=== PATIENT | female | born 1990 | race Caucasian/White ===

== ENCOUNTER 2017-03-27 15:30 | Outpatient (RCR) | payer OTHER, SELFPAY | END 2017-04-05 23:59 | LOC: NS 15:30 | PROVIDERS: Family Provider Student in an Organized Health Care Education/Training Program; PCP Student in an Organized Health Care Education/Training Program; Visit Provider Nurse Practitioner Adult Health | DX: E66.9 Obesity, unspecified (principal); Z71.3 Dietary counseling and surveillance | CPT/HCPCS: 97803 ==

== ENCOUNTER 2017-04-10 16:07 | Outpatient (RCR) | payer OTHER, SELFPAY | END 2017-05-03 23:59 | LOC: NS 16:07 | PROVIDERS: Family Provider Student in an Organized Health Care Education/Training Program; PCP Student in an Organized Health Care Education/Training Program; Visit Provider Nurse Practitioner Adult Health | DX: E66.9 Obesity, unspecified (principal); Z71.3 Dietary counseling and surveillance | CPT/HCPCS: 97803 ==

== ENCOUNTER → 2017-04-20 17:58 | Outpatient (CLI) | payer OTHER, SELFPAY ==
[2017-04-25 15:57] LABS: HPV Reflexed? NOT INDICATED
== END ==
PROVIDERS: Family Provider Student in an Organized Health Care Education/Training Program; PCP Student in an Organized Health Care Education/Training Program; Visit Provider Obstetrics & Gynecology
DX: Z12.4 Encounter for screening for malignant neoplasm of cervix (principal)
CPT/HCPCS: 88175; G0145

== ENCOUNTER 2017-05-22 16:00 | Outpatient (RCR) | payer OTHER, SELFPAY | END 2017-06-03 23:59 | LOC: NS 16:00 | PROVIDERS: Family Provider Student in an Organized Health Care Education/Training Program; PCP Student in an Organized Health Care Education/Training Program; Visit Provider Nurse Practitioner Adult Health | DX: E66.9 Obesity, unspecified (principal); Z71.3 Dietary counseling and surveillance | CPT/HCPCS: 97803 ==

== ENCOUNTER → 2017-05-23 16:20 | Outpatient (CLI) | payer OTHER, SELFPAY ==
[2017-05-23 17:50] LABS: Hemoglobin A1c 5.1 % (4.2-6.3)
== END ==
PROVIDERS: Family Provider Student in an Organized Health Care Education/Training Program; PCP Student in an Organized Health Care Education/Training Program; Visit Provider Student in an Organized Health Care Education/Training Program
DX: R63.5 Abnormal weight gain (principal)
CPT/HCPCS: 36415; 83036

== ENCOUNTER → 2017-05-24 15:48 | Outpatient (CLI) | payer OTHER, SELFPAY ==
[2017-05-24 17:45] LABS: T4 Free Direct 0.93 ng/dL (0.76-1.46)
[2017-05-24 17:51] LABS: T3 Total - Triiodothyronine 1.06 ng/mL (0.6-1.81)
== END ==
PROVIDERS: Family Provider Student in an Organized Health Care Education/Training Program; PCP Student in an Organized Health Care Education/Training Program; Visit Provider Student in an Organized Health Care Education/Training Program
DX: R63.5 Abnormal weight gain (principal)
CPT/HCPCS: 36415; 84439; 84480

== ENCOUNTER → 2017-05-30 16:33 | Outpatient (CLI) | payer OTHER, SELFPAY ==
[2017-05-30 17:54] LABS: Follicle Stimulating Hormone 7.7 mIU/mL
[2017-06-02 03:07] LABS: DHEA Sulfate 96.9 ug/dL (84.8-378.0)
[2017-06-02 14:37] LABS: 17-Hydroxyprogesterone < 10 ng/dL (.)
== END ==
PROVIDERS: Family Provider Student in an Organized Health Care Education/Training Program; PCP Student in an Organized Health Care Education/Training Program; Visit Provider Obstetrics & Gynecology
DX: N92.6 Irregular menstruation, unspecified (principal)
CPT/HCPCS: 36415; 82627; 83001; 83498; 84402; 82626

== ENCOUNTER → 2017-06-05 09:19 | Outpatient (CLI) | payer OTHER, SELFPAY ==
[2017-06-09 12:08] LABS: Testosterone, Free 0.71 ng/dL (0.10-0.85); Testosterone, Total 37 ng/dL (8-48)
[2017-06-09 17:28] LABS: Testosterone, % Free 1.91 % (0.50-2.80)
== END ==
PROVIDERS: Family Provider Student in an Organized Health Care Education/Training Program; PCP Student in an Organized Health Care Education/Training Program; Visit Provider Obstetrics & Gynecology
DX: R79.89 Other specified abnormal findings of blood chemistry (principal)
CPT/HCPCS: 36415; 84402; 84403

== ENCOUNTER 2017-06-05 17:18 | Outpatient (RCR) | payer OTHER, SELFPAY | END 2017-07-03 23:59 | LOC: NS 17:18 | PROVIDERS: Family Provider Student in an Organized Health Care Education/Training Program; PCP Student in an Organized Health Care Education/Training Program; Visit Provider Nurse Practitioner Adult Health | DX: E66.9 Obesity, unspecified (principal); Z71.3 Dietary counseling and surveillance | CPT/HCPCS: 97803 ==

== ENCOUNTER → 2017-06-24 14:36 | Outpatient (CLI) | payer OTHER, SELFPAY ==
--- NOTE | 2017-06-24 10:08 | US_ITS ---
STUDY: ULTRASOUND TRANSVAGINAL CLINICAL: Female, 27 years old. Elevated testosterone. Patient taking control pills. Chronic pelvic pain. TECHNIQUE: Transvaginal COMPARISON: None. FINDINGS: Uterus measures 6.5 x 3.7 x 3.7 cm and is retroverted. Normal endometrial thickness measuring 3 mm. There are no endometrial masses, and there is no fluid in the endometrial cavity. Normal uterine cervix. Normal right ovary, measuring 1.4 x 1.0 x 0.7 cm. There are multiple follicles without a dominant cyst. Normal left ovary, measuring 2.7 x 2.6 x 2.1 cm. Left ovarian simple cyst measuring 2.7 x 2.5 x 2.2 cm. There is no free fluid in the pelvis. Polycystic ovary disease: No. US/Pelvic (Non ) IMPRESSION: 2.7 cm simple left ovarian cyst compatible with physiologic cyst. Otherwise negative exam. Electronically Signed: Edwin Rock MD at 8:09 EDT , Service support ,
--- NOTE | 2017-06-24 10:08 | US_ITS ---
STUDY: ULTRASOUND TRANSVAGINAL CLINICAL: Female, 27 years old. Elevated testosterone. Patient taking control pills. Chronic pelvic pain. TECHNIQUE: Transvaginal COMPARISON: None. FINDINGS: Uterus measures 6.5 x 3.7 x 3.7 cm and is retroverted. Normal endometrial thickness measuring 3 mm. There are no endometrial masses, and there is no fluid in the endometrial cavity. Normal uterine cervix. Normal right ovary, measuring 1.4 x 1.0 x 0.7 cm. There are multiple follicles without a dominant cyst. Normal left ovary, measuring 2.7 x 2.6 x 2.1 cm. Left ovarian simple cyst measuring 2.7 x 2.5 x 2.2 cm. There is no free fluid in the pelvis. Polycystic ovary disease: No. US/Transvaginal Non- IMPRESSION: 2.7 cm simple left ovarian cyst compatible with physiologic cyst. Otherwise negative exam. Electronically Signed: Edwin Rock MD at 8:09 EDT , Service support ,
== END ==
PROVIDERS: Family Provider Student in an Organized Health Care Education/Training Program; PCP Student in an Organized Health Care Education/Training Program; Visit Provider Obstetrics & Gynecology
DX: R79.89 Other specified abnormal findings of blood chemistry (principal)
CPT/HCPCS: 76830; 76856; 93976

== ENCOUNTER 2017-07-12 08:04 | Outpatient (RCR) | payer OTHER, SELFPAY | END 2017-08-03 23:59 | LOC: NS 08:04 | PROVIDERS: Family Provider Student in an Organized Health Care Education/Training Program; PCP Student in an Organized Health Care Education/Training Program; Visit Provider Nurse Practitioner Adult Health | DX: E66.9 Obesity, unspecified (principal); Z71.3 Dietary counseling and surveillance ==

== ENCOUNTER 2017-12-03 11:02 | Emergency (ER) | payer OTHER, SELFPAY ==
[2017-12-03 11:03] VITALS: BP 143/89; PULSE 96; RESP 18; TEMP 36.6; O2SAT 99; BMI 45.7
--- NOTE | 2017-12-03 11:21 | CT_ITS ---
STUDY: CT ABDOMEN AND PELVIS WITH CONTRAST REASON FOR EXAM: Female, 27 years old. Abdominal pain x2 days RADIATION DOSAGE (If Supplied By Facility): CTDIvol = ( 21.28 ) mGy, DLP = ( 1749.82 ) mGycm TECHNIQUE: Transaxial images were obtained from the dome of the diaphragm to the symphysis pubis with oral contrast. 100 ml of Isovue 300 contrast was administered. Sagittal and coronal images were reconstructed. Individualized dose optimization techniques were used for this CT. COMPARISON: None. FINDINGS: The visualized lung bases are unremarkable. The visualized portions of the heart are within normal limits. Normal liver. Normal gallbladder and extrahepatic biliary system. Normal spleen. Normal pancreas. Normal bilateral adrenal glands. Normal right kidney. Normal left kidney. Normal visualized stomach. Normal small intestine. In the distal transverse colon as well as the descending colon in the region of the splenic flexure, there is circumferential wall thickening and edema of the colon compatible with colitis. The appendix is visualized and appears normal. Normal abdominal aorta. Normal inferior vena cava. Normal retroperitoneum. Normal urinary bladder. Normal visualized uterus. Normal abdominal wall. Normal osseous structures. CT/Abdomen/Pelvis WITH Contrast IMPRESSION: Distal transverse and descending colitis Electronically Signed: Aryan Harden DO at 13:29 EDT Tel , Service support ,
--- NOTE | 2017-12-03 11:25 | ED.DCSUM_ITS ---
- ER Visit Summary Date of Service: 12/03/17 Chief Complaint: Abdominal pain History of Present Illness: The patient is a 27 F who presents for severe abdominal pain since last night. Patient states she began having diffuse abdominal pain described as a dull ache with intermittent sharp stabbing pains last night. She thought she had to have a bowel movement, and had a normal stool followed by 2-3 episodes of diarrhea. She has had associated nausea but no vomiting. No fever but has had chills and sweats alternating. Today the abdominal pain is radiating into the bilateral lower quadrants, continuing the constant dull ache diffusely with sharp stabbing pains into the lower quadrants. There is not one side that hurts worse than the other. Patient today is having large amounts of flatus and feels like she has to have a bowel movement, but bloody mucus is all that comes out. Pain woke her from sleep this morning. With the severe pain she feels like she is going to pass out. She denies . She has a history of ovarian cyst but states this feels completely different. She denies any dysuria, hematuria, frequency or urgency. No medical problems other than the ovarian cysts. Patient is on oral contraceptives. Physical Examination: Vital signs: afebrile, hemodynamically stable, no hypoxia on room air General: well nourished, well developed, BMI 45, in no distress, appears uncomfortable Skin: warm, dry, no rash, no pallor HEENT: normocephalic and atraumatic; PERRL, EOMI, moist mucous membranes Cardiovascular: Tachycardic rate and rhythm without murmurs, no peripheral edema, 2+ pulses all distal extremities Respiratory: No increased work of breathing, lungs are clear to auscultation bilaterally, no rales, rhonchi or wheezing Abdominal: Abdomen is soft, diffusely tender, worst in the left and right lower quadrants and suprapubic region, with hyperactive bowel sounds, no guarding or rebound, no masses MSK: Moves all extremities, no deformities, normal strength Neuro: Awake and alert, oriented ?4. No facial droop, sensation and motor function intact and symmetric Test Results: Abnormal Lab Results 12/03/17 12/03/17 12/03/17 11:35 11:35 11:35 WBC 7.4 RBC 4.60 Hgb 13.5 Hct 40.5 MCV 88.0 MCH 29.3 MCHC 33.3 RDW 13.2 RDW Differential 42.6 Plt Count 237 MPV 10.3 Immature Gran % (Auto) 0.100 Neut % (Auto) 76.0 H Lymph % (Auto) 18.3 L [place] % (Auto) 3.9 Eos % (Auto) 1.6 Baso % (Auto) 0.1 Absolute Neuts (auto) 5.6 Absolute Lymphs (auto) 1.35 Total Counted Not Reportable Sodium 139 Potassium 3.8 Chloride 107 Carbon Dioxide 25.0 Anion Gap 7 BUN 8 Creatinine 0.73 Estim Creat Clear Calc 89.93 Est GFR (MDRD) Af Amer 121 Est GFR (MDRD) Non-Af 100 BUN/Creatinine Ratio 11.0 Glucose 94 Lactic Acid 0.8 Calcium 8.4 L Total Bilirubin 0.30 AST 13 L ALT 16 Alkaline Phosphatase 50 Total Protein 7.3 Albumin 3.2 Globulin 4.1 Albumin/Globulin Ratio 0.8 L Lipase 93 Urine Color Urine Clarity Urine pH Ur Specific [place] Urine Protein Urine Glucose (UA) Urine Ketones Urine Occult Blood Urine Nitrite Urine Bilirubin Urine Urobilinogen Ur Leukocyte Esterase Urine RBC Urine WBC Ur Squamous Epith Cells Urine Bacteria Urine Mucus Urine Test 12/03/17 12/03/17 11:35 11:35 WBC RBC Hgb Hct MCV MCH MCHC RDW RDW Differential Plt Count MPV Immature Gran % (Auto) Neut % (Auto) Lymph % (Auto) [place] % (Auto) Eos % (Auto) Baso % (Auto) Absolute Neuts (auto) Absolute Lymphs (auto) Total Counted Sodium Potassium Chloride Carbon Dioxide Anion Gap BUN Creatinine Estim Creat Clear Calc Est GFR (MDRD) Af Amer Est GFR (MDRD) Non-Af BUN/Creatinine Ratio Glucose Lactic Acid Calcium Total Bilirubin AST ALT Alkaline Phosphatase Total Protein Albumin Globulin Albumin/Globulin Ratio Lipase Urine Color Yellow Urine Clarity Sl. Cloudy Urine pH 5.0 Ur Specific [place] 1.015 Urine Protein Negative Urine Glucose (UA) Normal Urine Ketones Negative Urine Occult Blood 10 H Urine Nitrite Negative Urine Bilirubin Negative Urine Urobilinogen Normal Ur Leukocyte Esterase 500 H Urine RBC 0 SEEN Urine WBC 10-25 SEEN Ur Squamous Epith Cells 5-10 SEEN Urine Bacteria 0 SEEN Urine Mucus 0 SEEN Urine Test Negative Clinical Impression(s) from Imaging Studies Abdomen/Pelvis CT 12/03/17 11:21 IMPRESSION: Distal transverse and descending colitis Electronically Signed: Aryan Harden DO at 13:29 EDT Tel , Service support , Medications Given Discontinued Medications Sodium Chloride () 1,000 mls @ 1,000 mls/hr IV .Q1H ONE Stop: 12/03/17 12:19 Last Admin: 12/03/17 11:45 Dose: 1,000 mls/hr Morphine Sulfate () 4 mg IV X1 ONE Stop: 12/03/17 11:21 Last Admin: 12/03/17 11:45 Dose: 4 mg Ondansetron HCl (Zofran) 4 mg IV X1 ONE Stop: 12/03/17 11:21 Last Admin: 12/03/17 11:45 Dose: 4 mg Emergency Department Course and Treatment: Patient was given IV fluids, Zofran and morphine for pain. test was checked and was negative. Labs and CT abdomen and pelvis performed. She had no leukocytosis, anemia, electrolyte derangements, hepatic or renal dysfunction. CT of the abdomen and pelvis showed colitis of the distal transverse colon and the descending colon. Patient is afebrile and nontoxic-appearing. She will not be treated with antibiotics at this time for her diarrhea and colitis, as the differential includes inflammatory colitis, infectious colitis from viral or bacterial etiology; and if it is bacterial, her symptoms are mild. Thus risks of unnecessary empiric antibiotic treatment outweigh the benefits of treatment for a presumed bacterial infection. Patient's urine was positive for pyuria with gross contamination with epithelial cells, and patient had no urinary symptoms. Culture is pending but patient will not be started on antibiotics for UTI at this time. Patient was feeling better after receiving fluids and medications. Patient did not have any further diarrhea while in the emergency department, thus stool sample was not available for testing. Patient was discharged home with a prescription for Zofran and Bentyl. She is to follow-up with her doctor if she continues to have diarrhea, for consideration of possible GI consult and colonoscopy. Patient will return to the emergency department if she has worsening of her symptoms, such as development of a fever, uncontrolled pain, or general worsening of her condition. Patient discharged home in improved condition. Treatment Plan: [] Disposition: [] Impression: Acute colitis This note was generated with [employer] dictation software. It may contain incorrect words, spelling, and punctuation that were not noted in review of the chart prior to signing ED Disposition - Plan for ED Patient: Chief Complaint: Abd Pain Prescriptions: Ondansetron [Zofran Odt] 4 mg PO Q8H PRN PRN #10 tab PRN Reason: Nausea Dicyclomine HCl [Bentyl] 20 mg PO TIDAC #20 cap Referrals: Ahmet Martinez DO [Primary Care Provider] -
[2017-12-03] MEDS: 0.9% Normal Saline 1,000 ML 1000 ML IV (11:45)
[2017-12-03] MEDS: Morphine 4 MG/ML Syringe IV (11:45)
[2017-12-03] MEDS: Ondansetron 4 MG/2 ML Vial IV (11:45)
[2017-12-03 11:56] LABS: Bacteria 0 SEEN /hpf (None Seen); Mucous, Urine 0 SEEN /hpf (<or=2+); Red Blood Cells-Urine 0 SEEN /hpf (0-5)
[2017-12-03 11:59] LABS: Absolute Lymphocyte Count 1.35 X10^3/ul (0.83-4.51); Absolute Neutrophil Count 5.6 X10^3/uL (2.0-7.7); Basophil# 0.01 X10^3/uL; Basophil% 0.1 % (0-1); Color, Urine Yellow (Yellow); Eosinophil# 0.12 X10^3/uL; Eosinophils% 1.6 % (0-5); Glucose, Dipstick Normal (Normal); Hematocrit 40.5 % (37-47); Hemoglobin 13.5 g/dl (12.0-15.0); Ketone-Dipstick Negative (Negative); Leukocyte Esterase-Dipstick 500 /ul (Negative); Lymphocyte # 1.35 X10^3/ul (4.0); Lymphocyte % 18.3 % (19-41); Mean Corp Hgb Conc 33.3 g/gl (32-36); Mean Corpuscular Hgb 29.3 pg (27.0-32.0); Mean Platelet Vol. 10.3 fl (6.2-12.0); Monocyte# 0.29 X10^3/uL; Monocyte% 3.9 % (0-10); Neutrophil # 5.58 X10^3/uL (2.7-7.7); Nitrite-Dipstick Negative (Negative); Occult Blood-Urine 10 /ul (Negative); POSITIVE COUNT NO; POSITIVE DIFFERENTIAL NO; POSITIVE MORPHOLOGY NO; Platelet Count 237 K/mm3 (150-450); Protein-Dipstick Negative (Negative); RBC Distribution Width CV 13.2 % (11.6-14.6); RBC Distribution Width SD 42.6 fl (35.1-43.9); Specific Gravity, Urine 1.015 (1.002-1.030); Urine Bilirubin Dipstick Negative (Negative); Urine Clarity Sl. Cloudy (Clear); Urine Urobilinogen Normal (Normal); White Blood Count 7.4 K/mm3 (4.4-11.0)
[2017-12-03 12:00] LABS: Internal QC Validated? YES +Cl - CLEAR BKGD; Pregnancy, Urine Negative Negative
[2017-12-03 12:06] LABS: Squamous Epithelial Cells - UA 5-10 SEEN /hpf (5-10); White Blood Cells 10-25 SEEN /hpf (0-5)
[2017-12-03 12:15] LABS: ALB/GLOB Ratio 0.8 RATIO (0.9-2.4); AST(SGOT) 13 U/L (15-37); Alanine Aminotransfer ALT/SGPT 16 U/L (13-56); Albumin, Serum 3.2 g/dL (3.2-5.0); Alkaline Phosphatase 50 U/L (45-117); Anion Gap 7 (5-15); BUN 8 mg/dL (7-18); Calcium,Total 8.4 mg/dL (8.5-10.1); Chloride 107 mmol/L (98-107); Creatinine, Serum 0.73 mg/dL (0.55-1.02); EST Glomerular Filtration Rate 100 mL/min (>60); Est Glom Filt Rate - Afr Amer 121 mL/min (>60); Estimated Creatinine Clearance 89.93 ml/min; Globulin 4.1 g/dL (2.2-4.2); Glucose 94 mg/dL (74-106); Lipase 93 U/L (73-393); Potassium 3.8 mmol/L (3.5-5.1); Protein, Total 7.3 g/dL (6.4-8.2); Sodium Level 139 mmol/L (136-145)
[2017-12-03 12:23] LABS: Lactic Acid 0.8 mmol/L (0.4-2.0)
[2017-12-03 13:36] VITALS: BP 118/70; PULSE 79; RESP 18; O2SAT 99
--- NOTE | 2017-12-03 13:50 | ED.DEP ---
ED Disposition - Plan for ED Patient: Disposition: Home or Assisted Living Chief Complaint: Abd Pain Instructions: ED Diet Vomiting Diarrhea, ED Vomiting Diarrhea Nonspecific Ad Prescriptions: Ondansetron [Zofran Odt] 4 mg PO Q8H PRN PRN #10 tab PRN Reason: Nausea Dicyclomine HCl [Bentyl] 20 mg PO TIDAC #20 cap Referrals: Ahmet Martinez DO [Primary Care Provider] - 3-5 Days if not improving Additional Instructions: You have colitis, which is inflammation of your colon. It is common to have with a diarrheal illness. Use the Zofran as needed for nausea and the Bentyl for abdominal crampy pain. You may also use osns-lma-lhgeefg pain medications as needed. If you continue to have symptoms, please follow-up with your doctor within the next 3-5 days for reevaluation and to discuss whether you need a colonoscopy to further evaluate your colitis. If you have any worsening of your condition or any new concerning symptoms, please return immediately to the emergency department for another evaluation.
--- NOTE | 2017-12-03 13:53 | DCINST.ED_ITS ---
ED Disposition - Plan for ED Patient: Disposition: Home or Assisted Living Chief Complaint: Abd Pain Instructions: ED Diet Vomiting Diarrhea, ED Vomiting Diarrhea Nonspecific Ad Prescriptions: Ondansetron [Zofran Odt] 4 mg PO Q8H PRN PRN #10 tab PRN Reason: Nausea Dicyclomine HCl [Bentyl] 20 mg PO TIDAC #20 cap Referrals: Ahmet Martinez DO [Primary Care Provider] - 3-5 Days if not improving Additional Instructions: You have colitis, which is inflammation of your colon. It is common to have with a diarrheal illness. Use the Zofran as needed for nausea and the Bentyl for abdominal crampy pain. You may also use daxa-bhj-qkskrlg pain medications as needed. If you continue to have symptoms, please follow-up with your doctor within the next 3-5 days for reevaluation and to discuss whether you need a colonoscopy to further evaluate your colitis. If you have any worsening of your condition or any new concerning symptoms, please return immediately to the emergency department for another evaluation.
[2017-12-03 14:02] VITALS: BP 120/69; PULSE 77; RESP 16; O2SAT 100
== END 2017-12-03 14:05 | disposition home or self-care (01) ==
PROVIDERS: Emergency Provider Emergency Medicine; Family Provider Student in an Organized Health Care Education/Training Program; PCP Student in an Organized Health Care Education/Training Program
DX: K52.9 Noninfective gastroenteritis and colitis, unspecified (principal)
CPT/HCPCS: 74177; 80053; 81001; 81025; 83605; 83690; 85025; 87086; 87088; 96361; 96374; 96375; 99283; J7030; Q9967; A4216; J2405

== ENCOUNTER → 2017-12-07 08:48 | Outpatient (CLI) | payer OTHER, SELFPAY | PROVIDERS: Family Provider Student in an Organized Health Care Education/Training Program; PCP Student in an Organized Health Care Education/Training Program; Referring Provider Nurse Practitioner Adult Health; Visit Provider Nurse Practitioner Adult Health | DX: K52.9 Noninfective gastroenteritis and colitis, unspecified (principal) | CPT/HCPCS: 87493; 87506 ==

== ENCOUNTER → 2017-12-22 08:50 | Outpatient (CLI) | payer OTHER, SELFPAY ==
[2017-12-25 14:07] LABS: Endomysial Antibody IgA Negative (Negative)
[2017-12-26 14:28] LABS: Immunoglobulin A 102 mg/dL (87-352); t-Transglutaminase IgA <2 U/mL (0-3)
== END ==
PROVIDERS: Family Provider Student in an Organized Health Care Education/Training Program; PCP Student in an Organized Health Care Education/Training Program; Referring Provider Internal Medicine Gastroenterology; Visit Provider Internal Medicine Gastroenterology
DX: R10.9 Unspecified abdominal pain (principal)
CPT/HCPCS: 36415; 82784; 83516; 86140; 86255

== ENCOUNTER 2018-02-19 07:30 | Day surgery (SDC) | payer OTHER, SELFPAY ==
[2018-02-01 08:20] VITALS: BMI 42.6
[2018-02-19 07:58] VITALS: BP 142/79; PULSE 86; RESP 14; TEMP 36.6; O2SAT 100; BMI 40.6
[2018-02-19 08:21] LABS: Internal QC Validated? YES +Cl - CLEAR BKGD; Pregnancy, Urine Negative Negative
--- NOTE | 2018-02-19 08:30 | EGD_PTH ---
PATIENT: ANDREW MURCIA LOC: EN U#:[id number] AGE/SX: 27/F ROOM: RE02/19/[address]: Dr. Faviola Romano MD : 1990 BED: DIS: 02/19/2018 SPEC #: [id number] RECD: 02/19/18 09:34 STATUS: DELBERT ALAINA #: [id number] ROSAS: 02/19/18 08:[address]: Faviola Romano DEPT: SURGICAL PATHOLOGY RECD BY: Himanshu Steve ENTERED: 02/19/18 11:07 SP TYPE: EGD BIOPSY KYMBERLY DR: Dr. Ahmet Martinez, Tissues: A - Gastric mucous membrane B - Gastric mucous membrane C - Transverse colon D - Descending colon Procedures: Surgery Specimen Level IV HEADER OPERATION: Colonoscopy, EGD ([facility] [place]) PRE-OP DIAGNOSIS: Abnormal CT scan, abdominal pain left lower quadrant, epigastric abdominal pain diarrhea TISSUE SUBMITTED: A - Antral biopsy and H. Pylori, B - Biopsy GE junction, C - Transverse colon biopsies, D - Descending colon biopsies MICROSCOPIC DIAGNOSIS A. Gastric antrum, biopsy: Mild chronic gastritis. B. Gastroesophageal junction, biopsy: Fragment of gastric mucosa with mild chronic inflammation. See comment. C. Transverse colon, biopsy: No pathologic diagnosis. D. Descending colon, biopsy: No pathologic diagnosis. AM:yari 02/20/18 COMMENT A. The results of immunohistochemistry for Helicobacter pylori will be reported separately ([id number]). B. Squamous mucosa is not represented in the biopsy. Clinical correlation is suggested. MICROSCOPIC DESCRIPTION Slides are reviewed. GROSS DESCRIPTION A - Received in fixative is one container labeled with the patient's name and designated antral biopsy, H. pylori. The specimen consists of one irregular fragment of light demarco soft tissue that measures 0.3 x 0.3 x 0.1 cm. The specimen is totally submitted in one cassette. B - Received in fixative is one container labeled with the patient's name and designated biopsy GE junction. The specimen consists of one irregular fragment of light demarco soft tissue that measures 0.5 x 0.2 x 0.1 cm. The specimen is totally submitted in one cassette. C - Received in fixative is one container labeled with the patient's name and designated transverse colon biopsy. The specimen consists of one irregular fragment of light demarco soft tissue that measures 0.3 x 0.3 x 0.1 cm. The specimen is totally submitted in one cassette. D - Received in fixative is one container labeled with the patient's name and designated descending colon biopsy. The specimen consists of multiple irregular fragments of light demarco soft tissue that in aggregate measure 1 x 0.4 x 0.1 cm. The specimen is totally submitted in one cassette. / SJ:rg 02/19/18 TC:3 CPT: 13143 x4
[2018-02-19 09:13] VITALS: BP 143/73; BP 84/75; PULSE 82; RESP 18; O2SAT 100
[2018-02-19 09:14] VITALS: BP 109/67; BP 143/73; PULSE 82; RESP 18; TEMP 36.3; O2SAT 100
--- NOTE | 2018-02-19 09:14 | OP.ENDO_ITS ---
Patient Name: Dolores Bernardo Procedure Date: 02/19/2018 8:33 AM Date of : 1990 Age: 27 Procedure: Upper GI endoscopy Indications: Epigastric abdominal pain, Heartburn Providers: Faviola Romano MD Referring MD: Ahmet Martinez Medicines: Monitored Anesthesia Care Patient Profile: This is a 27 year old female. Patient has symptoms of chronic epigastric abdominal pain. Complications: No immediate complications. Procedure: Pre-Anesthesia Assessment: - Prior to the procedure, a History and Physical was performed, and patient medications and allergies were reviewed. The patient's tolerance of previous anesthesia was also reviewed. The risks and benefits of the procedure and the sedation options and risks were discussed with the patient. All questions were answered, and informed consent was obtained. Prior Anticoagulants: The patient has taken no previous anticoagulant or antiplatelet agents. ASA Grade Assessment: II - A patient with mild systemic disease. After reviewing the risks and benefits, the patient was deemed in satisfactory condition to undergo the procedure. - Prior to the procedure, a History and Physical was performed, and patient medications and allergies were reviewed. The patient's tolerance of previous anesthesia was also reviewed. The risks and benefits of the procedure and the sedation options and risks were discussed with the patient. All questions were answered, and informed consent was obtained. Prior Anticoagulants: The patient has taken no previous anticoagulant or antiplatelet agents. ASA Grade Assessment: II - A patient with mild systemic disease. After reviewing the risks and benefits, the patient was deemed in satisfactory condition to undergo the procedure. After obtaining informed consent, the endoscope was passed under direct vision. Throughout the procedure, the patient's blood pressure, pulse, and oxygen saturations were monitored continuously. The gastroscope was introduced through the mouth, and advanced to the second part of duodenum. The upper GI endoscopy was accomplished without difficulty. The patient tolerated the procedure well. Scope In: 8:44:15 AM Scope Out: 8:50:56 AM Total Procedure Duration Time 0 hours 6 minutes 41 seconds Findings: Mild inflammation characterized by erythema was found in the gastric antrum. Biopsies were taken with a cold forceps for histology. Biopsies were taken with a cold forceps for Helicobacter pylori cultures. The Z-line was irregular and was found 36 cm from the incisors. Biopsies were taken with a cold forceps for histology. The examined duodenum was normal. Impression: - Gastritis. Biopsied. - Z-line irregular, 36 cm from the incisors. Biopsied. - Normal examined duodenum. Recommendation: - Await pathology results. - Discharge patient to home. - Continue present medications. Procedure Code(s): --- Professional --- 05204, Esophagogastroduodenoscopy, flexible, transoral; with biopsy, single or multiple Diagnosis Code(s): --- Professional --- K29.70, Gastritis, unspecified, without bleeding K22.8, Other specified diseases of esophagus R10.13, Epigastric pain R12, Heartburn CPT copyright 2017 [employer]. All rights reserved. The codes documented in this report are preliminary and upon hospital coder review may be revised to meet current compliance requirements. MD Faviola Collier MD 02/19/2018 9:14:25 AM This report has been signed electronically. Number of Addenda: 0 Note Initiated On: 02/19/2018 8:33 AM
--- NOTE | 2018-02-19 09:20 | OP.ENDO_ITS ---
Patient Name: Dolores Bernardo Procedure Date: 02/19/2018 8:53 AM Date of : 1990 Age: 27 Procedure: Colonoscopy Indications: Chronic diarrhea, Abnormal CT of the GI tract Providers: Faviola Romano MD Referring MD: Ahmet Martinez Medicines: Monitored Anesthesia Care Patient Profile: This is a 27 year old female. Patient has symptoms of chronic epigastric abdominal pain. Last Colonoscopy: none. The patient's first colonoscopy is today. Complications: No immediate complications. Procedure: Pre-Anesthesia Assessment: - Prior to the procedure, a History and Physical was performed, and patient medications and allergies were reviewed. The patient's tolerance of previous anesthesia was also reviewed. The risks and benefits of the procedure and the sedation options and risks were discussed with the patient. All questions were answered, and informed consent was obtained. Prior Anticoagulants: The patient has taken no previous anticoagulant or antiplatelet agents. ASA Grade Assessment: II - A patient with mild systemic disease. After reviewing the risks and benefits, the patient was deemed in satisfactory condition to undergo the procedure. - Prior to the procedure, a History and Physical was performed, and patient medications and allergies were reviewed. The patient's tolerance of previous anesthesia was also reviewed. The risks and benefits of the procedure and the sedation options and risks were discussed with the patient. All questions were answered, and informed consent was obtained. Prior Anticoagulants: The patient has taken no previous anticoagulant or antiplatelet agents. ASA Grade Assessment: II - A patient with mild systemic disease. After reviewing the risks and benefits, the patient was deemed in satisfactory condition to undergo the procedure. After I obtained informed consent, the scope was passed under direct vision. Throughout the procedure, the patient's blood pressure, pulse, and oxygen saturations were monitored continuously. The Colonoscope was introduced through the anus and advanced to the cecum, identified by the appendiceal orifice, ileocecal valve and palpation. The colonoscopy was performed without difficulty. The patient tolerated the procedure well. The quality of the bowel preparation was good. Scope In: 8:52:26 AM Scope Withdrawal Time 0 hours 8 minutes 57 seconds Scope Out: 9:08:35 AM Total Procedure Duration Time 0 hours 16 minutes 9 seconds Findings: The perianal and digital rectal examinations were normal. Biopsies were taken with a cold forceps in the descending colon and in the transverse colon for histology--random biopsies for diarrhea. The entire examined colon appeared normal on direct and retroflexion views. Impression: - The entire examined colon is normal on direct and retroflexion views. - Biopsies were taken with a cold forceps for histology in the descending colon and in the transverse colon for random biopsies due to diarrhea/colitis on CT. Recommendation: - Await pathology results. - Discharge patient to home. - Continue present medications. - Repeat colonoscopy in 1 year at age 45/50 (depends if the age changes from 50) for annual screening. Procedure Code(s): --- Professional --- 45717, Colonoscopy, flexible; with biopsy, single or multiple Diagnosis Code(s): --- Professional --- K52.9, Noninfective gastroenteritis and colitis, unspecified R93.3, Abnormal findings on diagnostic imaging of other parts of digestive tract CPT copyright 2017 [employer]. All rights reserved. The codes documented in this report are preliminary and upon nutrition club ambassador review may be revised to meet current compliance requirements. MD Faviola Collier MD 02/19/2018 9:19:25 AM This report has been signed electronically. Number of Addenda: 0 Note Initiated On: 02/19/2018 8:53 AM
[2018-02-19 09:26] VITALS: BP 116/77; BP 143/73; PULSE 77; RESP 18; O2SAT 100
--- NOTE | 2018-02-19 09:30 | IMM_PTH ---
PATIENT: ANDREW MURCIA LOC: EN U#:[id number] AGE/SX: 27/F ROOM: RE02/19/[address]: Dr. Faviola Romano MD : 1990 BED: DIS: 02/19/2018 SPEC #: [id number] RECD: 02/19/18 15:48 STATUS: DELBERT REShravan #: [id number] ROSAS: 02/19/18 09:[address]: Faviola Romano DEPT: IMMUNOHISTOCHEMISTRY RECD BY: Leonie Murray ENTERED: 02/19/18 15:48 SP TYPE: IMMUNO OTHR DR: Dr. Ahmet Martinez, Tissues: A - Stomach, NOS Procedures: H Pylori (initial) PHYSICIAN & INSTITUTION [place] [id number] SPECIMEN INFORMATION: Tissue Source: A - Antral biopsy Clinical Info: Abnormal CT scan, abdominal pain left lower quadrant, epigastric abdominal pain Specimen Number: [id number] CPT code: 46390 METHODOLOGY: Deparaffinized sections of prefer/formalin-fixed tissue or PAP/DQ stained slides are incubated with monoclonal/polyclonal antibodies/oligonucleotide probes. Localization is made via biotin free immunoperoxidase method. Appropriate controls are performed and reacted as expected. Results on target cell population are indicated in the following table: RESULTS: ANTIBODY / CLONE RESULT Block A H Pylori (polyclonal) negative These tests were developed and their performance characteristics determined by [facility]. They may not have been cleared or approved by the U.S. Food and Drug Administration. The FDA has determined that such clearance or approval is not necessary. INTERPRETATION: A. Antral biopsy: Negative for Helicobacter pylori organisms. AM:yari 02/20/18
[2018-02-19 09:32] VITALS: BP 129/86; BP 143/73; PULSE 80; RESP 18; TEMP 36.1; O2SAT 97
[2018-02-19 09:44] VITALS: BP 143/73
--- OUTSIDE RECORDS SUMMARY | 2018-05-23 17:09 | XMS RPT_ITS ---
:1990 Author Organization OHIP Support Name Relationship Address Phone KADEN LOYD Unavailable [address] + [place] [address] [facility] Unavailable [address] + [place] [address] ZADRA, KIM Unavailable [address] + [place] [address] KADEN LOYD Unavailable [address] + [place] [address] [facility] Unavailable [address] + [place] [address] ZADRA, KIM Unavailable [address] + [place] [address] KADEN LOYD Unavailable [address] + [place] [address] [facility] Unavailable [address] + [place] [address] ZADRA, KIM Unavailable [address] + [place] [address] KADEN LOYD Unavailable [address] + [place] [address] [facility] Unavailable [address] + [place] [address] ZADRA, KIM Unavailable [address] + [place] [address] KADEN LOYD Unavailable [address] + [place] [address] [facility] Unavailable [address] + [place] [address] ZADRA, KIM Unavailable [address] + [place] [address] RACH, KADEN Unavailable [address] + [place] [address] [facility] Unavailable [address] + [place] [address] ZADRA, KIM Unavailable [address] + [place] [address] RACH, KADEN Unavailable [address] + [place] [address] [facility] Unavailable [address] + [place] [address] ZADRA, KIM Unavailable [address] + [place] [address] RACH, KADEN Unavailable [address] + [place] [address] [facility] Unavailable [address] + [place] [address] ZADRA, KIM Unavailable [address] + [place] [address] RACH, KADEN Unavailable [address] + [place] [address] [facility] Unavailable [address] + [place] [address] ZADRA, KIM Unavailable [address] + [place] [address] RACH, KADEN Unavailable [address] + [place] [address] [facility] Unavailable [address] + [place] [address] ZADRA, KIM Unavailable [address] + [place] [address] RACH, KADEN Unavailable [address] + [place] [address] [facility] Unavailable [address] + [place] [address] ZADRA, KIM Unavailable [address] + [place] [address] RACH, KADEN Unavailable [address] + [place] [address] [facility] Unavailable [address] + [place] [address] ZADRA, KIM Unavailable [address] + [place] [address] RACH, KADEN Unavailable [address] + [place] [address] [facility] Unavailable [address] + [place] [address] ZADRA, KIM Unavailable [address] + [place] [address] RACH, KADEN Unavailable [address] + [place] [address] [facility] Unavailable [address] + [place] [address] ZADRA, KIM Unavailable [address] + [place] [address] RACH, KADEN Unavailable [address] + [place] [address] [facility] Unavailable [address] + [place] [address] ZADRA, KIM Unavailable [address] + [place] [address] RACH, KADEN Unavailable [address] + [place] [address] [facility] Unavailable [address] + [place] [address] ZADRA, KIM Unavailable [address] + [place] [address] RACH, KADEN Unavailable [address] + [place] [address] [facility] Unavailable [address] + [place] [address] ZADRA, KIM Unavailable [address] + [place] [address] RACH, KADEN Unavailable [address] + [place] [address] [facility] Unavailable [address] + [place] [address] ZADRA, KIM Unavailable [address] + [place] [address] RACH, KADEN Unavailable [address] + [place] [address] [facility] Unavailable [address] + [place] [address] ZADRA, KIM Unavailable [address] + [place] [address] RACH, KADEN Unavailable [address] + [place] [address] [facility] Unavailable [address] + [place] [address] ZADRA, KIM Unavailable [address] + [place] [address] RACHALLEGRA CavanaughON Unavailable [address] + [place] [address] [facility] Unavailable [address] + [place] [address] ZADRA, KIM Unavailable [address] + [place] [address] Care Team Providers Name Role Phone AHMET PERES L Attending Unavailable BLOSSOM DE DIOS L (EDUCATIONAL ADMINISTRATION TEACHER) Attending Unavailable PERES, AHMET L Attending Unavailable PERES, AHMET L Referring Unavailable CORNIELBLOSSOM PATTON L (EDUCATIONAL ADMINISTRATION TEACHER) Attending Unavailable Faviola Romano Attending Unavailable Corniello, Blossom SANITIZER-C Attending Unavailable Corniello, Blossom SANITIZER-C Referring Unavailable Peres, Ahmet Primary Care Unavailable Ne Weller Attending Unavailable Peres, Ahmet Referring Unavailable Peres, Ahmet Primary Care Unavailable Ne Weller Attending Unavailable Ne Weller Referring Unavailable Peres, Ahmet Primary Care Unavailable Corniello, Blossom SANITIZER-C Attending Unavailable Jakubiello, Blossom SANITIZER-C Referring Unavailable Peres, Ahmet Primary Care Unavailable Peres, Ahmet Attending Unavailable Peres, Ahmet Referring Unavailable Peres, Ahmet Primary Care Unavailable Peres, Ahmet Attending Unavailable Peres, Ahmet Referring Unavailable Peres, Ahmet Primary Care Unavailable Ne Weller Attending Unavailable Ne Weller Referring Unavailable Peres, Ahmet Primary Care Unavailable Corniello, Blossom SANITIZER-C Attending Unavailable Corniello, Blossom SANITIZER-C Referring Unavailable Peres, Ahmet Primary Care Unavailable Ne Weller Attending Unavailable Aminataony, Ne Referring Unavailable Peres, Ahmet Primary Care Unavailable Nithin, Ne Attending Unavailable Marcanthony, Ne Referring Unavailable Peres, Ahmet Primary Care Unavailable Corniello, Blossom SANITIZER-C Attending Unavailable Corniello, Blossom SANITIZER-C Referring Unavailable Peres, Ahmet Primary Care Unavailable Winston Pete Attending Unavailable Peres, Ahmet Referring Unavailable Peres, Ahmet Primary Care Unavailable Ne Weller Attending Unavailable Peres, Ahmet Referring Unavailable Peres, Ahmet Primary Care Unavailable Corniello, Blossom SANITIZER-C Attending Unavailable Corniello, Blossom SANITIZER-C Referring Unavailable Peres, Ahmet Primary Care Unavailable ASSESSMENT, HEALTH RISK Attending Unavailable ASSESSMENT, HEALTH RISK Referring Unavailable Peres, Ahmet Primary Care Unavailable Peres, Ahmet Primary Care Unavailable Alisa Quinn Attending Unavailable Corniello, Blossom SANITIZER-C Attending Unavailable Corniello, Blossom SANITIZER-C Referring Unavailable Peres, Ahmet Primary Care Unavailable Jabour, Vincent Attending Unavailable Peres, Ahmet Primary Care Unavailable Jabour, Vincent Referring Unavailable Robotham, Faviola Attending Unavailable Jabour, Vincent Referring Unavailable Robotham, Faviola Attending Unavailable Robotham, Faviola Referring Unavailable Peres, Ahmet Primary Care Unavailable PROBLEMS PROBLEMS DATE TYPE CONDITION / CODE ATTENDING STATUS SOURCE 2018 Unknown R93.3 - Abnormal Robotham, Active Danny findings on [facility] diagnostic imaging of Hospital other parts of Repository digestive tract / R93.3(ICD-10) 2018 Unknown K52.9 - Noninfective Robotham, Active Danny gastroenteritis and [facility] colitis, unspecified Hospital / K52.9(ICD-10) Repository 2018 Unknown K29.70 - Gastritis, Robotham, Active [place] unspecified, without [facility] bleeding / Hospital K29.70(ICD-10) Repository 2018 Unknown R10.13 - Epigastric Robotham, Active [place] pain / R10.13(ICD-10) [facility] Hospital Repository 2018 Unknown R12 - Heartburn / Robotham, Active Danny R12(ICD-10) [facility] Repository 08/04/2017 Unknown E66.9 - Obesity, Corniello, Active [place] unspecified / Blossom SANITIZER-C Community E66.9(ICD-10) Hospital Repository 07/10/2017 Unknown R63.5 - Abnormal Marcsanjiv, Active [place] weight gain / [facility] R63.5(ICD-10) Hospital Repository 07/14/2017 Unknown R79.89 - Other Marcanthony, Active [place] specified abnormal [facility] findings of blood Hospital chemistry / Repository R79.89(ICD-10) 04/21/2017 Unknown Z12.4 - Encounter for Marcsanjiv, Active [place] screening for [facility] malignant neoplasm of Hospital cervix / Repository Z12.4(ICD-10) PROCEDURES PROCEDURES No Procedure Records FoundRESULTS RESULTS IMMUNOHISTOCHEMISTRY Observed: 02/19/2018 Status: F Source: [place] 9:30 AM [facility] REPOSITORY Patient: ANDREW BERNARDO : 1990 (27/F) Acct Num: [id number] Phys: Rosalina BENNETT,[facility] Unit Num: [id number] Loc: EN Specimen: [id number] Received: 02/19/18 - 1548 Spec Type: IMMUNO TISSUES 1 TISSUES: A. Stomach, NOS SPECIMEN INFORMATION: Tissue Source: A - Antral biopsy Clinical Info: Abnormal CT scan, abdominal pain left lower quadrant, epigastric abdominal pain Specimen Number: [id number] CPT code: 80474 METHODOLOGY: Deparaffinized sections of prefer/formalin-fixed tissue or PAP/DQ stained slides are incubated with monoclonal/polyclonal antibodies/oligonucleotide probes. Localization is made via biotin free immunoperoxidase method. Appropriate controls are performed and reacted as expected. Results on target cell population are indicated in the following table: RESULTS: ANTIBODY / CLONE RESULT Block A H Pylori (polyclonal) negative These tests were developed and their performance characteristics determined by [facility]. They may not have been cleared or approved by the U.S. Food and Drug Administration. The FDA has determined that such clearance or approval is not necessary. INTERPRETATION: A. Antral biopsy: Negative for Helicobacter pylori organisms. AM:yari 02/20/18 PHYSICIAN AND INSTITUTION [place] [address] Signed Arnel Luis DO 02/20/18 <signature on file> Performed By: #### PIMM #### [facility] [address] [place], [address] OPERATIVE REPORT - Observed: 02/19/2018 Status: F Source: [facility] 9:20 AM [facility] REPOSITORY [facility] Medical Records Department [address] [place] [address] Operative Report - Endoscopy MR#: [id number] Acct: [id number] Name: ANDREW BERNARDO Rep #: [id number] : 1990 27 From: Faviola Romano MD PCP: Ahmet Cabello DO Status: REG [facility] Patient Name: Andrew Bernardo Procedure Date: 02/19/2018 8:53 AM Date of : 1990 Age: 27 Procedure: Colonoscopy Indications: Chronic diarrhea, Abnormal CT of the GI tract Providers: Faviola Romano MD Referring MD: Ahmet Peres Medicines: Monitored Anesthesia Care Patient Profile: This is a 27 year old female. Patient has symptoms of chronic epigastric abdominal pain. Last Colonoscopy: none. The patient's first colonoscopy is today. Complications: No immediate complications. Procedure: Pre-Anesthesia Assessment: - Prior to the procedure, a History and Physical was performed, and patient medications and allergies were reviewed. The patient's tolerance of previous anesthesia was also reviewed. The risks and benefits of the procedure and the sedation options and risks were discussed with the patient. All questions were answered, and informed consent was obtained. Prior Anticoagulants: The patient has taken no previous anticoagulant or antiplatelet agents. ASA Grade Assessment: II - A patient with mild systemic disease. After reviewing the risks and benefits, the patient was deemed in satisfactory condition to undergo the procedure. - Prior to the procedure, a History and Physical was performed, and patient medications and allergies were reviewed. The patient's tolerance of previous anesthesia was also reviewed. The risks and benefits of the procedure and the sedation options and risks were discussed with the patient. All questions were answered, and informed consent was obtained. Prior Anticoagulants: The patient has taken no previous anticoagulant or antiplatelet agents. ASA Grade Assessment: II - A patient with mild systemic disease. After reviewing the risks and benefits, the patient was deemed in satisfactory condition to undergo the procedure. After I obtained informed consent, the scope was passed under direct vision. Throughout the procedure, the patient's blood pressure, pulse, and oxygen saturations were monitored continuously. The Colonoscope was introduced through the anus and advanced to the cecum, identified by the appendiceal orifice, ileocecal valve and palpation. The colonoscopy was performed without difficulty. The patient tolerated the procedure well. The quality of the bowel preparation was good. Scope In: 8:52:26 AM Scope Withdrawal Time 0 hours 8 minutes 57 seconds Scope Out: 9:08:35 AM Total Procedure Duration Time 0 hours 16 minutes 9 seconds Findings: The perianal and digital rectal examinations were normal. Biopsies were taken with a cold forceps in the descending colon and in the transverse colon for histology--random biopsies for diarrhea. The entire examined colon appeared normal on direct and retroflexion views. Impression: - The entire examined colon is normal on direct and retroflexion views. - Biopsies were taken with a cold forceps for histology in the descending colon and in the transverse colon for random biopsies due to diarrhea/colitis on CT. Recommendation: - Await pathology results. - Discharge patient to home. - Continue present medications. - Repeat colonoscopy in 1 year at age 45/50 (depends if the age changes from 50) for annual screening. Procedure Code(s): --- Professional --- 89766, Colonoscopy, flexible; with biopsy, single or multiple Diagnosis Code(s): --- Professional --- K52.9, Noninfective gastroenteritis and colitis, unspecified R93.3, Abnormal findings on diagnostic imaging of other parts of digestive tract CPT copyright 2017 [employer]. All rights reserved. The codes documented in this report are preliminary and upon snuff box finisher review may be revised to meet current compliance requirements. MD Faviola Collier MD 02/19/2018 9:19:25 AM This report has been signed electronically. Number of Addenda: 0 Note Initiated On: 02/19/2018 8:53 AM 02/19/18 0919 Date Faviola Romano MD Cosigner Signature: Date (if indicated) CC: Ahmet Cabello DO; Faviola Romano MD Date Dictated: 02/19/18 0853 Date Transcribed: Weights And Measures Sealer: TR Signed OPERATIVE REPORT - Observed: 02/19/2018 Status: F Source: [facility] 9:14 AM [facility] REPOSITORY [facility] Medical Records Department [address] [place] [address] Operative Report - Endoscopy MR#: [id number] Acct: [id number] Name: ANDREW BERNARDO Rep #: [id number] : 1990 27 From: Faviola Romano MD PCP: Ahmet Cabello DO Status: REG [facility] Patient Name: Andrew Bernardo Procedure Date: 02/19/2018 8:33 AM Date of : 1990 Age: 27 Procedure: Upper GI endoscopy Indications: Epigastric abdominal pain, Heartburn Providers: Faviola Romano MD Referring MD: Ahmet Peres Medicines: Monitored Anesthesia Care Patient Profile: This is a 27 year old female. Patient has symptoms of chronic epigastric abdominal pain. Complications: No immediate complications. Procedure: Pre-Anesthesia Assessment: - Prior to the procedure, a History and Physical was performed, and patient medications and allergies were reviewed. The patient's tolerance of previous anesthesia was also reviewed. The risks and benefits of the procedure and the sedation options and risks were discussed with the patient. All questions were answered, and informed consent was obtained. Prior Anticoagulants: The patient has taken no previous anticoagulant or antiplatelet agents. ASA Grade Assessment: II - A patient with mild systemic disease. After reviewing the risks and benefits, the patient was deemed in satisfactory condition to undergo the procedure. - Prior to the procedure, a History and Physical was performed, and patient medications and allergies were reviewed. The patient's tolerance of previous anesthesia was also reviewed. The risks and benefits of the procedure and the sedation options and risks were discussed with the patient. All questions were answered, and informed consent was obtained. Prior Anticoagulants: The patient has taken no previous anticoagulant or antiplatelet agents. ASA Grade Assessment: II - A patient with mild systemic disease. After reviewing the risks and benefits, the patient was deemed in satisfactory condition to undergo the procedure. After obtaining informed consent, the endoscope was passed under direct vision. Throughout the procedure, the patient's blood pressure, pulse, and oxygen saturations were monitored continuously. The gastroscope was introduced through the mouth, and advanced to the second part of duodenum. The upper GI endoscopy was accomplished without difficulty. The patient tolerated the procedure well. Scope In: 8:44:15 AM Scope Out: 8:50:56 AM Total Procedure Duration Time 0 hours 6 minutes 41 seconds Findings: Mild inflammation characterized by erythema was found in the gastric antrum. Biopsies were taken with a cold forceps for histology. Biopsies were taken with a cold forceps for Helicobacter pylori cultures. The Z-line was irregular and was found 36 cm from the incisors. Biopsies were taken with a cold forceps for histology. The examined duodenum was normal. Impression: - Gastritis. Biopsied. - Z-line irregular, 36 cm from the incisors. Biopsied. - Normal examined duodenum. Recommendation: - Await pathology results. - Discharge patient to home. - Continue present medications. Procedure Code(s): --- Professional --- 70078, Esophagogastroduodenoscopy, flexible, transoral; with biopsy, single or multiple Diagnosis Code(s): --- Professional --- K29.70, Gastritis, unspecified, without bleeding K22.8, Other specified diseases of esophagus R10.13, Epigastric pain R12, Heartburn CPT copyright 2017 [employer]. All rights reserved. The codes documented in this report are preliminary and upon snuff box finisher review may be revised to meet current compliance requirements. MD Faviola Collier MD 02/19/2018 9:14:25 AM This report has been signed electronically. Number of Addenda: 0 Note Initiated On: 02/19/2018 8:33 AM 02/19/18 0914 Date Faviola Romano MD Cosigner Signature: Date (if indicated) CC: Ahmet Cabello DO; Faviola Romano MD Date Dictated: 02/19/18832 Date Transcribed: Weights And Measures Sealer: SOLANGE Signed EGD ([facility]) Observed: 02/19/2018 Status: F Source: [place] 8:30 AM [facility] REPOSITORY Patient: ANDREW BERNARDO : 1990 (27/F) Acct Num: [id number] Phys: Rosalina BENNETT,Faviola Unit Num: [id number] Loc: EN Specimen: [id number] Received: 02/19/18933 Spec Type: EGD BIOPSY TISSUES 1 TISSUES: A. Gastric mucous membrane B. Gastric mucous membrane C. Transverse colon D. Descending colon COMMENT A. The results of immunohistochemistry for Helicobacter pylori will be reported separately ([id number]). B. Squamous mucosa is not represented in the biopsy. Clinical correlation is suggested. GROSS DESCRIPTION A - Received in fixative is one container labeled with the patient's name and designated antral biopsy, H. pylori. The specimen consists of one irregular fragment of light demarco soft tissue that measures 0.3 x 0.3 x 0.1 cm. The specimen is totally submitted in one cassette. B - Received in fixative is one container labeled with the patient's name and designated biopsy GE junction. The specimen consists of one irregular fragment of light demarco soft tissue that measures 0.5 x 0.2 x 0.1 cm. The specimen is totally submitted in one cassette. C - Received in fixative is one container labeled with the patient's name and designated transverse colon biopsy. The specimen consists of one irregular fragment of light demarco soft tissue that measures 0.3 x 0.3 x 0.1 cm. The specimen is totally submitted in one cassette. D - Received in fixative is one container labeled with the patient's name and designated descending colon biopsy. The specimen consists of multiple irregular fragments of light demarco soft tissue that in aggregate measure 1 x 0.4 x 0.1 cm. The specimen is totally submitted in one cassette. / SJ:yari 02/19/18 TC:3 CPT: 55898 x4 HEADER OPERATION: Colonoscopy, EGD ([facility] [place]) PRE-OP DIAGNOSIS: Abnormal CT scan, abdominal pain left lower quadrant, epigastric abdominal pain diarrhea TISSUE SUBMITTED: A - Antral biopsy and H. Pylori, B - Biopsy GE junction, C - Transverse colon biopsies, D - Descending colon biopsies MICROSCOPIC DESCRIPTION Slides are reviewed. MICROSCOPIC DIAGNOSIS A. Gastric antrum, biopsy: Mild chronic gastritis. B. Gastroesophageal junction, biopsy: Fragment of gastric mucosa with mild chronic inflammation. See comment. C. Transverse colon, biopsy: No pathologic diagnosis. D. Descending colon, biopsy: No pathologic diagnosis. AM:rg 02/20/18 Signed Arnel Toby, DO 02/20/18 <signature on file> Performed By: #### PEGD #### [facility] [address] [place], [address] ,URINE Collected: 02/19/2018 Status: F Source: [facility] 7:46 AM [facility] REPOSITORY Order Comment: Reason for Laboratory Test PREOP TYPE CODE TESTS RESULT OUT OF REFERENCE UNITS RANGE LAB L400.8000 Negative Normal HCGUQUAL Negative Result Comment: Very dilute urine specimens, as indicated by a low specific gravity, may not contain sales representative aircraft levels of hCG. If is still suspected, a first morning urine specimen should be collected 48 hours later and tested. Performed By: #### [id number] #### [facility] [address] [place], [address] SURGERY VISIT REPORT Observed: 02/01/2018 Status: F Source: [facility] 9:06 AM [facility] REPOSITORY [facility] [address] [place] [address] OFFICE VISIT Date of Service: 02/01/18 MR#: [id number] Acct: [id number] Name: ANDREW BERNARDO Mandeep Rep #: [id number] : 1990 Provider: Faviola Romano MD Age/Sex: 27/F Location: [facility] Status: Signed Intake Vital Signs02/01/18 Height 5 ft 2 in 02/01/18 Weight: 233 lb 5 oz 02/01/18 Body Mass Index (BMI) 42.6 02/01/18 Blood Pressure 135/87 H 02/01/18 Blood Pressure Location Rt brachial Intake Visit Reasons: C-Scope Consult Chief Complaint: abd pain/ colitis Heel Seat Filler Required: No Is patient in pain?: No Allergies No Known Allergies Allergy (Verified 02/01/18 08:21) Medications cholecalciferol (vitamin D3) 1,000 unit capsule 1,000 unit PO QDAY 07/06/17 [History Confirmed 02/01/18] norethindrone 1 mg-e. estradiol 20 mcg (24)-iron 75 mg (4) chew tablet 1 tab PO QDAY #84 tab 10/18/17 [Rx Confirmed 02/01/18] Dicyclomine HCl [Bentyl] 20 mg PO TIDAC #20 cap 12/03/17 [Rx Confirmed 02/01/18] Is last menstrual period known: No Post menopausal: No Patient : No ON LICENSE OF [facility] Medical History Colitis (Acute 01/2018) Anxiety and depression (Acute) Asthma (Acute) Back pain (Acute) Neck pain (Acute) Ovarian cyst (Acute) SOB (shortness of breath) (Acute) Surgical History History of wisdom tooth extraction, class II edentulism (Acute) Family History Mother Cancer Cervical - Hyst Social History Smoking Status: Never smoker alcohol intake: never substance use type: does not use caffeine: Yes frequency: 1-2 times per week seatbelt use: always do you feel safe at home: Yes additional social history: Engaged- 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 Patient went to the ER on 12/03/17 for sharp abdominal pain. She had a CT abdomen pelvis which stated that she had distal transverse and descending colitis, however look up on this CT this area also was decompressed and had no stool. Patient had normal white blood cell count. Patient did follow-up with Dr. Willoughby with GI she was initially taking Bentyl for every meal however did get some constipation issues with this. Dr. Willoughby recommend that she only take Bentyl when needed. Patient states she does not really eat much for breakfast however she does seem to eat a little for lunch and again not as much for dinner and she does make sure she eats an early dinner so she is able to get about without as much abdominal pain. Patient states that after she eats she does have sharp stabbing abdominal pain that will occur first in her upper abdomen that will last for about 15 minutes and then the lower abdomen will again only last for shorter period of time but however the lower abdomen still remained to have a dull pain. Patient also has diarrhea after eating. He states that taking the Bentyl before lunch has improved some of the pain however it still occurs. Patient denies any burning of the esophagus only the epigastric pain about 10 minutes after eating especially with tomato-based products. Patient states she had stool cultures and C. difficile with Dr. Willoughby which were negative. He did recommend a colonoscopy however he does not to the hospital and she does have possible insurance. ROS General General: Yes fatigue; no weight change, appetite, colon cancer, breast cancer or weakness HEENT HEENT: Yes difficulty swallowing; no eye injury, eye surgery, swollen glands or hoarseness Endo Endocrine: No thyroid disease, diabetes mellitus, thyroid cancer, Hair loss, heat intolerance or cold intolerance Cardio Cardiovascular: No murmur, pacemaker, heart disease, atrial fibrillation, high blood pressure, heart attack, heart stent, palpitations, shortness of breat with exertion or chest pain Resp Respiratory: Yes shortness of breath, No sleep apnea, No cough, No COPD, Yes asthma, No emphysema, No wheezing Gastro Gastrointestinal: Yes abdominal pain, Yes nausea or vomiting, Yes diarrhea, Yes constipation, No blood in stool, No acid reflux, No hemorrhoids, No ulcers, No gallbladder problem, No black,tarry stools Elio Hematologic: No blood thinners, No blood disorders, No bleeding, No anemia, No blood clots Neuro Neurologic: No weakness Exam Const General: cooperative, comfortable, no acute distress Nutritional Appearance: obese Resp Effort AND Inspection: normal respiratory effort Cardio Rate: regular rate Heart Sounds: no murmurs GI Inspection: non-distended, obesity Palpation: soft, tender (Left lower quad> epigastric, left upper quadrant), no guarding Neuro General: oriented x3 Cranial Nerves: CN's II-XI intact bilaterally Psych Affect: normal affect Assessment AND Plan Problems 1. Abnormal CT scan, colon R93.3 2. Abdominal pain, left lower quadrant R10.32 3. Epigastric abdominal pain R10.13 4. Diarrhea R19.7 Plan I have discussed the above with the patient. I have offered the patient EGD AND colonoscopy-with random bx of transverse/descending colon for evaluation. I have explained the risks/benefits of the procedure and described the procedure. I have discussed the risks with the patient, including but not limited to: infection, bleeding, perforation of the GI tract requiring emergency surgery, inability to complete the procedure, injury to any internal organs, complications of anesthesia, etc. - the patient understands and agrees to proceed. I have answered all the patient's questions to the patient's satisfaction and the patient has no further questions. The patient has been given instructions for the colon cleansing preparation. 1 day clears, miralax/dulcolax split Faviola Romano M.D. Pager: [phone] [facility] [address] [place] [address], [address] [place] [address] Office: [phone] Orders Orders: Plan Detail Follow Up Will schedule colonoscopy ( AND EGD) Coding Level of Care Code Off vis,new,level [address] scan, colon R93.3 Abdominal pain, left lower quadrant R10.32 Epigastric abdominal pain R10.13 Diarrhea R19.7 02/01/18 0906 <Electronically signed by Faviola Romano MD> Date Faviola Romano MD Cosigner Signature: Date (if applicable) CC: Ahmet Cabello DO; Cuauhtemoc Willoughby CRP Collected: 12/22/2017 Status: F Source: [place] 8:56 AM [facility] REPOSITORY TYPE CODE TESTS RESULT OUT OF RANGE REFERENCE UNITS LAB L501.6710 0.0-3.0 mg/L High 18.30 C-REACTIVE PROT Result Comment: C-Reactive Protein (CRP) provides useful information for the diagnosis, therapy and monitoring of inflammatory processes and associated diseases. For the evaluation of Relative Risk for Cardiovascular Disease, a High Sensitivity CRP (HSCRP) should be ordered. Performed By: #### L501.6710 #### [facility] [address] [place], [place], [address] CELIAC DISEASE Collected: 12/22/2017 Status: F Source: [place] PROFILE 8:56 AM [facility] REPOSITORY TYPE CODE TESTS RESULT OUT OF RANGE REFERENCE UNITS LAB L3200.1400 87-352 mg/dL Normal IMMUNO A 102 Result Comment: Performed at: [facility] [id number] Director Trust: Cuauhtemoc Merritt PhD, Phone: [phone] LAB L3019.6281 0-3 U/mL Normal tTG IGA <2 Result Comment: Negative 0 - 3 Weak Positive 4 - 10 Positive >10 Tissue Transglutaminase (tTG) has been identified as the endomysial antigen. Studies have demonstr- ated that endomysial IgA antibodies have over 99% specificity for gluten sensitive enteropathy. LAB L3410.2975 Negative Normal ENDOMYSIAL IGA Negative Performed By: #### L3410.2400 #### [facility] (refer to report for specific site) refer to report for address and phone number Observed: 12/06/2017 Status: F Source: [place] CDIFF (MOLECULAR) 6:00 PM [facility] REPOSITORY COLLECTED 12/06/17 1800 BY PT AND REFRIDGERATED. Cdiff-Molecular Normal Reference Range = Negative C. Diff DNA Negative- No toxigenic C. Diff DNA Detected NAAT METHOD Testing was performed using nucleic acid amplification Performed By: #### M100.6796, M100.637 #### [facility] [address] [place], [address] Observed: 12/06/2017 Status: F Source: [place] ENTERIC PATHOGEN 6:00 PM [facility] PANEL STOOL REPOSITORY COLLECTED 12/06/17 1800 BY PT AND REFRIDGERATED. EP PANEL STOOL Not detected for Campylobacter group, Salmonella species, Shigella species, Vibrio Group, Yersinia enterocolitica, EHEC (Shiga Toxin 1, Shiga Toxin 2), Norovirus Gl/Gll, and Rotavirus A. Other common stool pathogens are not detected on this panel include: Aeromonas/Plesiomonas or parasites. Order testing for these organisms separately if suspected. This is an amplified DNA test which makes it both specific and sensitive. Normal Reference Range = Not Detected CAMPYLOBACTER Not Detected Salmonella Not Detected Shigella sp. Not Detected Shiga Toxin Not Detected Yersinia Not Detected VIBRIO Not Detected Norovirus Not Detected Rotavirus Not Detected Performed By: #### M100.6796, M100.637 #### [facility] [address] [place], [address] PROGRESS Observed: 12/05/2017 Status: COMPLETED Source: [place] 2:51 PM [facility] [place] REPOSITORY HNO ID: [id number] Author: Blossom Matt (Literacy Coach) Lanre Service: (none) Author Type: Nurse Practitioner Type: Progress Notes Filed: 12/05/2017 2:59 PM Note Text: HPI/CC: Andrew Bernardo is a 27 year old female who presents to the office today for hospital ER follow-up. She was to [facility] ER for severe abdominal pain on 12/03/2017- was diagnosed with colitis on CT. Reports bloody mucous like loose stools prior to ER. Testing completed at the facility: CBC with diff, CMP, urine HCG WNL. Was DC'd home with Zofran and Bentyl Urine showed + leuks and hematuria- no UTI s/s. Continues to have generalized abdominal pain that increases with food, + mild nausea, decreased appetite. + Hx of GERD Denies fever, chills, vomiting, UTI symptoms. No BM x 4 days. REVIEW OF SYSTEMS As above HISTORIES: PAST MEDICAL HISTORY Diagnosis Date - Asthma PAST SURGICAL HISTORY Procedure Laterality Date - EXTRACTION ERUPTED TOOTH/EXR FAMILY HISTORY Problem Relation Age of Onset - Hypertension Mother - other (High Cholesterol) Mother - Cancer Father - Diabetes Maternal Grandmother - Alzheimer's Disease Maternal Grandfather - Diabetes Paternal Grandmother Social History Marital status: Single Spouse name: Years of education: Number of children: Occupational History Occupation Employer Comment [employer] Social History Main Topics Smoking status: Never Smoker Smokeless tobacco: Never Used Alcohol use: Yes Comment: occasionally Drug use: No Sexual activity: Yes Partners with: Male Comment: since September 2012, uses [facility] Social History Narrative [employer], enjoys riding horses, engaged Current Outpatient Prescriptions on File Prior to Visit: acyclovir (ZOVIRAX) 400 mg tablet Take 1 tablet by mouth three times daily. For rash mupirocin (BACTROBAN) 2 % ointment Apply 1 application to affected area three times daily. Location: on face lesions FLUoxetine (PROZAC) 10 mg tablet Take 1 tablet by mouth once daily. ondansetron (ZOFRAN) 4 mg tablet Take 1 tablet by mouth every 8 hours as needed. meclizine (ANTIVERT) 25 mg tab Take 1 tablet by mouth three times daily as needed. albuterol HFA (VENTOLIN HFA) 90 mcg/actuation inhaler Inhale 2 Puffs as instructed every 4 hours as needed for Wheezing/Shortness of Breath. albuterol (PROVENTIL) 2.5 mg/0.5 mL nebulizer solution Use 0.5 mL via nebulizer every 4 hours as needed for Wheezing/Shortness of Breath. COMPOUNDED PRESCRIPTION [facility] [employer] Weight [facility] Dx:E66.9 norethindrone-e.estradiol-iron (MINASTRIN 24 FE) 1 mg-20 mcg(24) /75 mg (4) chew Take only active pills discard inactive and start new pack immediatley fluticasone (FLOVENT HFA) 220 mcg/actuation inhaler Inhale 1 Puff as instructed twice daily. + Air Compressor For Nebulized Meds Air compressor for nebulized inhaled treatments. Use as directed. fluticasone (FLONASE) 50 mcg/actuation nasal spray Use 2 Sprays in each nostril once daily. Rinse mouth after use. vitamin b complex (B COMPLEX 1) tab Take 1 tablet by mouth once daily. Cholecalciferol, Vitamin D3, (VITAMIN D) 1,000 unit tab Take 5,000 Units by mouth once daily. No current facility-administered medications on file prior to visit. ALLERGIES Allergen Reactions - Flu Vaccine 2014* GI Upset Bodyaches, Needs preservative free - Red Dye GI Upset She has GI upset with red dye but it is transient and self limiting - Vitamin E Oil Rash - Wellbutrin [Bupropi* GI Upset PHYSICAL EXAMINATION: BP 130/80 Pulse 84 Temp 37.3 ?C (99.2 ?F) Resp 16 Wt 109.8 kg (242 lb) BMI 42.87 kg/m? General appearance: Well appearing, alert, in no acute distress, well-hydrated, well nourished. and Morbidly obese Skin: Skin color, texture, turgor normal, no suspicious rashes or lesions Lungs: Lungs clear to auscultation. No wheezing, rhonchi, rales Heart: RRR without murmur, gallop, or rubs. No ectopy Abdomen: Normal abdominal exam, Abdomen soft, non-tender. Bowel sounds normal. No masses, organomegaly ASSESSMENT/PLAN: 1. Colitis - ICD9: 558.9, ICD10: K52.9 - CONSULT TO GASTROENTEROLOGY- ? colonoscopy - STOOL CULTURE/EIA - C. DIFFICILE PCR - f/u PRN Blossom De Dios APRN.CNP CNOV Observed: 12/05/2017 Status: COMPLETED Source: [place] 2:00 PM [facility] REPOSITORY Office Visit (FAMPWS) ANDREW BERNARDO ([id number]) [address] [facility] Date Time Provider Department 12/05/17 2:00 PM BLOSSOM DE DIOS (OLU) FAMPWS During your visit today, we recorded the following information about you: Temperature Pulse Respiration Blood pressure 99.2 degrees 84/minute 16/minute 130/80 Weight 109.8 kg Blossom De Dios APRN.CNP 12/05/2017 2:59 PM Signed HPI/CC: Andrew Bernardo is a 27 year old female who presents to the office today for hospital ER follow-up. She was to [facility] ER for severe abdominal pain on 12/03/2017- was diagnosed with colitis on CT. Reports bloody mucous like loose stools prior to ER. Testing completed at the facility: CBC with diff, CMP, urine HCG WNL. Was DC'd home with Zofran and Bentyl Urine showed + leuks and hematuria- no UTI s/s. Continues to have generalized abdominal pain that increases with food, + mild nausea, decreased appetite. + Hx of GERD Denies fever, chills, vomiting, UTI symptoms. No BM x 4 days. REVIEW OF SYSTEMS As above HISTORIES: PAST MEDICAL HISTORY Diagnosis Date - Asthma PAST SURGICAL HISTORY Procedure Laterality Date - EXTRACTION ERUPTED TOOTH/EXR FAMILY HISTORY Problem Relation Age of Onset - Hypertension Mother - other (High Cholesterol) Mother - Cancer Father - Diabetes Maternal Grandmother - Alzheimer's Disease Maternal Grandfather - Diabetes Paternal Grandmother Social History Marital status: Single Spouse name: Years of education: Number of children: Occupational History Occupation Employer Comment [employer] Social History Main Topics Smoking status: Never Smoker Smokeless tobacco: Never Used Alcohol use: Yes Comment: occasionally Drug use: No Sexual activity: Yes Partners with: Male Comment: since September 2012, uses [facility] Social History Narrative [employer], enjoys riding horses, engaged Current Outpatient Prescriptions on File Prior to Visit: acyclovir (ZOVIRAX) 400 mg tablet Take 1 tablet by mouth three times daily. For rash mupirocin (BACTROBAN) 2 % ointment Apply 1 application to affected area three times daily. Location: on face lesions FLUoxetine (PROZAC) 10 mg tablet Take 1 tablet by mouth once daily. ondansetron (ZOFRAN) 4 mg tablet Take 1 tablet by mouth every 8 hours as needed. meclizine (ANTIVERT) 25 mg tab Take 1 tablet by mouth three times daily as needed. albuterol HFA (VENTOLIN HFA) 90 mcg/actuation inhaler Inhale 2 Puffs as instructed every 4 hours as needed for Wheezing/Shortness of Breath. albuterol (PROVENTIL) 2.5 mg/0.5 mL nebulizer solution Use 0.5 mL via nebulizer every 4 hours as needed for Wheezing/Shortness of Breath. COMPOUNDED PRESCRIPTION [employer] Weight Program Dx:E66.9 norethindrone-e.estradiol-iron (MINASTRIN 24 FE) 1 mg-20 mcg(24) /75 mg (4) chew Take only active pills discard inactive and start new pack immediatley fluticasone (FLOVENT HFA) 220 mcg/actuation inhaler Inhale 1 Puff as instructed twice daily. + Air Compressor For Nebulized Meds Air compressor for nebulized inhaled treatments. Use as directed. fluticasone (FLONASE) 50 mcg/actuation nasal spray Use 2 Sprays in each nostril once daily. Rinse mouth after use. vitamin b complex (B COMPLEX 1) tab Take 1 tablet by mouth once daily. Cholecalciferol, Vitamin D3, (VITAMIN D) 1,000 unit tab Take 5,000 Units by mouth once daily. No current facility-administered medications on file prior to visit. ALLERGIES Allergen Reactions - Flu Vaccine 2014* GI Upset Bodyaches, Needs preservative free - Red Dye GI Upset She has GI upset with red dye but it is transient and self limiting - Vitamin E Oil Rash - Wellbutrin [Bupropi* GI Upset PHYSICAL EXAMINATION: BP 130/80 Pulse 84 Temp 37.3 ?C (99.2 ?F) Resp 16 Wt 109.8 kg (242 lb) BMI 42.87 kg/m? General appearance: Well appearing, alert, in no acute distress, well-hydrated, well nourished. and Morbidly obese Skin: Skin color, texture, turgor normal, no suspicious rashes or lesions Lungs: Lungs clear to auscultation. No wheezing, rhonchi, rales Heart: RRR without murmur, gallop, or rubs. No ectopy Abdomen: Normal abdominal exam, Abdomen soft, non-tender. Bowel sounds normal. No masses, organomegaly ASSESSMENT/PLAN: 1. Colitis - ICD9: 558.9, ICD10: K52.9 - CONSULT TO GASTROENTEROLOGY- ? colonoscopy - STOOL CULTURE/EIA - C. DIFFICILE PCR - f/u PRN Blossom De Dios, BUILD AND RELEASE MANAGER.EDUCATIONAL ADMINISTRATION TEACHER Referring Provider: SELF [200] Allergies As of Date: 12/05/2017 Noted Allergy Reaction FLU VACCINE TS 2014-(4YR,UP) 12/08/2015 8 - GI Upset Comments: Bodyaches, Needs preservative free RED DYE 12/15/2014 8 - GI Upset Comments: She has GI upset with red dye but it is transient and self limiting VITAMIN E OIL 10/29/2013 2 - Rash WELLBUTRIN (BUPROPION HCL) 11/29/2017 8 - GI Upset Date Reviewed: 12/05/2017 Reviewed by: Todd Otto LPN - Fully Assessed Reason for Visit: ER F/U [41] Cmt: [facility] ER f/u dx: abd pain Primary Visit Diagnosis:Colitis [K52.9] Order(s):CONSULT TO GASTROENTEROLOGY [9010] Order #: [id number]: 1 STOOL CULTURE/EIA [SQSTOCUL] Order #: [id number] FUTURE C. DIFFICILE PCR [SQCDPCR] Order #: [id number] Prescriptions as of 12/05/2017 Sig: ACYCLOVIR 400 MG TABLET Take 1 tablet by mouth three * MUPIROCIN 2 % TOPICAL OINTMENT Apply 1 application to affect* FLUOXETINE 10 MG TABLET Take 1 tablet by mouth once d* ONDANSETRON HCL 4 MG TABLET Take 1 tablet by mouth every * MECLIZINE 25 MG TABLET Take 1 tablet by mouth three * ALBUTEROL SULFATE HFA 90 MCG/* Inhale 2 Puffs as instructed * ALBUTEROL SULFATE CONCENTRATE* Use 0.5 mL via nebulizer ever* COMPOUNDED PRESCRIPTION [employer] [facility] Dx:* NORETHINDRONE 1 MG-E. ESTRADI* Take only active pills discar* FLUTICASONE 220 MCG/ACTUATION* Inhale 1 Puff as instructed t* COMPOUNDED PRESCRIPTION Air compressor for nebulized * FLUTICASONE 50 MCG/ACTUATION * Use 2 Sprays in each nostril * VITAMIN B COMPLEX TABLET Take 1 tablet by mouth once d* CHOLECALCIFEROL (VITAMIN D3) * Take 5,000 Units by mouth onc* Problem List As Of Date 12/05/2017 Noted Resolved Asthma, mild intermittent [J45.20] INVALID FOR* More... Obesity (BMI 30-39.9) [E66.9] INVALID FOR* Skin lesion of right arm [L98.9] INVALID FOR* Ganglion cyst of flexor tendon sheath [M67.40] INVALID FOR* Arm somatic dysfunction [M99.07] INVALID FOR* Segmental and somatic dysfunction of rib cage [*INVALID FOR* Somatic dysfunction of cervical region [M99.01] INVALID FOR* Neck pain [M54.2] INVALID FOR* Somatic dysfunction of thoracic region [M99.02] INVALID FOR* Cervical (neck) region somatic dysfunction [M99*INVALID FOR* Somatic dysfunction of head region [M99.00] INVALID FOR* Somatic dysfunction of rib [M99.08] INVALID FOR* Counseling and coordination of care [Z71.89] INVALID FOR* Priority: A More... Ovarian cyst, right [N83.201] INVALID FOR* Somatic dysfunction of hip region [M99.05] INVALID FOR* Obesity, Class III, BMI 40-49.9 (morbid obesity*INVALID FOR* Well adult exam [Z00.00] INVALID FOR* Impetigo [L01.00] INVALID FOR* Rash [R21] INVALID FOR* Adjustment disorder with anxious mood [F43.22] INVALID FOR* Letter Text Blossom De Dios CNP [address] [place], [place] [address] 12/05/2017 Andrew Kaufman [facility]# [id number] [facility] [address] TO WHOM IT MAY CONCERN: This is to certify that Ms. Andrew Bernardo has been under my care for illness and was unable to work on 12/04/2017. Sincerely yours, Blossom De Dios CNP Encounter Status:Closed by BLOSSOM DE DIOS CNP on 12/05/17 EMERGENCY DEPARTMENT Observed: 12/03/2017 Status: F Source: [place] SUMMARY 2:19 PM [facility] REPOSITORY [facility] Medical Records Department [address] [place] [address] Emergency Department Summary 12/03/17 1121 MR#: [id number] Acct: [id number] Name: ANDREW BERNARDO Mandeep Rep #: [id number] : 1990 27 From: Alisa Quinn MD PCP: Ahmet Cabello DO Status: DEP ER - ER Visit Summary Date of Service: 12/03/17 Chief Complaint: Abdominal pain History of Present Illness: The patient is a 27 F who presents for severe abdominal pain since last night. Patient states she began having diffuse abdominal pain described as a dull ache with intermittent sharp stabbing pains last night. She thought she had to have a bowel movement, and had a normal stool followed by 2-3 episodes of diarrhea. She has had associated nausea but no vomiting. No fever but has had chills and sweats alternating. Today the abdominal pain is radiating into the bilateral lower quadrants, continuing the constant dull ache diffusely with sharp stabbing pains into the lower quadrants. There is not one side that hurts worse than the other. Patient today is having large amounts of flatus and feels like she has to have a bowel movement, but bloody mucus is all that comes out. Pain woke her from sleep this morning. With the severe pain she feels like she is going to pass out. She denies . She has a history of ovarian cyst but states this feels completely different. She denies any dysuria, hematuria, frequency or urgency. No medical problems other than the ovarian cysts. Patient is on oral contraceptives. Physical Examination: Vital signs: afebrile, hemodynamically stable, no hypoxia on room air General: well nourished, well developed, BMI 45, in no distress, appears uncomfortable Skin: warm, dry, no rash, no pallor HEENT: normocephalic and atraumatic; PERRL, EOMI, moist mucous membranes Cardiovascular: Tachycardic rate and rhythm without murmurs, no peripheral edema, 2+ pulses all distal extremities Respiratory: No increased work of breathing, lungs are clear to auscultation bilaterally, no rales, rhonchi or wheezing Abdominal: Abdomen is soft, diffusely tender, worst in the left and right lower quadrants and suprapubic region, with hyperactive bowel sounds, no guarding or rebound, no masses MSK: Moves all extremities, no deformities, normal strength Neuro: Awake and alert, oriented 4. No facial droop, sensation and motor function intact and symmetric Test Results: Abnormal Lab Results WBC 7.4 RBC 4.60 Hgb 13.5 Hct 40.5 MCV 88.0 MCH 29.3 MCHC 33.3 Clinical Impression(s) from Imaging Studies Abdomen/Pelvis CT 12/03/17 11:21 IMPRESSION: Distal transverse and descending colitis Electronically Signed: Aryan Harden DO at 13:29 EDT Tel , Service support , Medications Given Discontinued Medications Sodium Chloride () 1,000 mls @ 1,000 mls/hr IV .Q1H ONE Stop: 12/03/17 12:19 Last Admin: 12/03/17 11:45 Dose: 1,000 mls/hr Morphine Sulfate () 4 mg IV X1 ONE Stop: 12/03/17 11:21 Last Admin: 12/03/17 11:45 Dose: 4 mg Ondansetron HCl (Zofran) 4 mg IV X1 ONE Stop: 12/03/17 11:21 Last Admin: 12/03/17 11:45 Dose: 4 mg Emergency Department Course and Treatment: Patient was given IV fluids, Zofran and morphine for pain. test was checked and was negative. Labs and CT abdomen and pelvis performed. She had no leukocytosis, anemia, electrolyte derangements, hepatic or renal dysfunction. CT of the abdomen and pelvis showed colitis of the distal transverse colon and the descending colon. Patient is afebrile and nontoxic-appearing. She will not be treated with antibiotics at this time for her diarrhea and colitis, as the differential includes inflammatory colitis, infectious colitis from viral or bacterial etiology; and if it is bacterial, her symptoms are mild. Thus risks of unnecessary empiric antibiotic treatment outweigh the benefits of treatment for a presumed bacterial infection. Patient's urine was positive for pyuria with gross contamination with epithelial cells, and patient had no urinary symptoms. Culture is pending but patient will not be started on antibiotics for UTI at this time. Patient was feeling better after receiving fluids and medications. Patient did not have any further diarrhea while in the emergency department, thus stool sample was not available for testing. Patient was discharged home with a prescription for Zofran and Bentyl. She is to follow-up with her doctor if she continues to have diarrhea, for consideration of possible GI consult and colonoscopy. Patient will return to the emergency department if she has worsening of her symptoms, such as development of a fever, uncontrolled pain, or general worsening of her condition. Patient discharged home in improved condition. Treatment Plan: [] Disposition: [] Impression: Acute colitis This note was generated with [employer] dictation software. It may contain incorrect words, spelling, and punctuation that were not noted in review of the chart prior to signing ED Disposition - Plan for ED Patient: Chief Complaint: Abd Pain Prescriptions: Ondansetron [Zofran Odt] 4 mg PO Q8H PRN PRN #10 tab PRN Reason: Nausea Dicyclomine HCl [Bentyl] 20 mg PO TIDAC #20 cap Referrals: Ahmet Peres DO [Primary Care Provider] - What to do if you have Problems For any increased pain, shortness of breath, bleeding, nausea or vomiting, chest pain, or any unexpected problems, contact your Primary Care Provider. Call [facility] ([phone]) or report to the closest Emergency Room. Call 911 if necessary. 12/03/17 1419 <Electronically signed by Alisa Quinn MD> Date Alisa Quinn MD Cosigner Signature (If Indicated): Date CC: Ahmet Cabello DO DISCHARGE INSTRUCTION Observed: 12/03/2017 Status: F Source: [place] 2:19 PM [facility] REPOSITORY THE [facility] Medical Records Department [address] [place] [address] Discharge Instruction 12/03/17 1350 MR#: [id number] Acct: [id number] Name: YADIRA BERNARDOFrancis Kaufman Rep #: [id number] : 1990 27 From: Alisa Quinn MD PCP: Ahmet Cabello DO Status: DEP ER ED Disposition - Plan for ED Patient: Disposition: Home or Assisted Living Chief Complaint: Abd Pain Instructions: ED Diet Vomiting Diarrhea, ED Vomiting Diarrhea Nonspecific Ad Prescriptions: Ondansetron [Zofran Odt] 4 mg PO Q8H PRN PRN #10 tab PRN Reason: Nausea Dicyclomine HCl [Bentyl] 20 mg PO TIDAC #20 cap Referrals: Ahmet Peres DO [Primary Care Provider] - 3-5 Days if not improving Additional Instructions: You have colitis, which is inflammation of your colon. It is common to have with a diarrheal illness. Use the Zofran as needed for nausea and the Bentyl for abdominal crampy pain. You may also use [id number] pain medications as needed. If you continue to have symptoms, please follow-up with your doctor within the next 3-5 days for reevaluation and to discuss whether you need a colonoscopy to further evaluate your colitis. If you have any worsening of your condition or any new concerning symptoms, please return immediately to the emergency department for another evaluation. What to do if you have Problems For any increased pain, shortness of breath, bleeding, nausea or vomiting, chest pain, or any unexpected problems, contact your Primary Care Provider. Call [facility] ([phone]) or report to the closest Emergency Room. Call 911 if necessary. 12/03/17 1419 <Electronically signed by Alisa Quinn MD> Date Alisa Quinn MD Cosigner Signature (If Indicated): Date CC: Ahmet Cabello, DO CBC W/DIFF, AUTOMATED Collected: 12/03/2017 Status: F Source: [place] 11:35 AM [facility] REPOSITORY TYPE CODE TESTS RESULT OUT OF RANGE REFERENCE UNITS LAB L100.1000 4.4-11.0 K/mm3 Normal WBC 7.4 LAB L100.1200 4.2-5.4 M/mm3 Normal RBC 4.60 LAB L100.1300 12.0-15.0 g/dl Normal HGB 13.5 LAB L100.1400 37-47 % Normal HCT 40.5 LAB L100.1500 81-99 fL Normal MCV 88.0 LAB L100.1600 27.0-32.0 pg Normal MCH 29.3 LAB L100.1700 32-36 g/gl Normal MCHC 33.3 LAB L100.1810 11.6-14.6 % Normal RDW CV 13.2 LAB L100.1820 35.1-43.9 fl Normal RDW SD 42.6 LAB L100.1900 150-450 K/mm3 Normal PLT 237 LAB L100.2000 6.2-12.0 fl Normal MPV 10.3 LAB L100.2100 47-70 % High NEUT% 76.0 LAB L100.2200 19-41 % Low LY% 18.3 LAB L100.2300 0-10 % Normal MONO% 3.9 LAB L100.2400 0-5 % Normal EO% 1.6 LAB L100.2500 0-1 % Normal BASO% 0.1 LAB L100.2550 0.0-0.9 % Normal IM GRAN % 0.100 Result Comment: IG% - Immature Granulocytes (promyelocytes, myelocytes and metamyelocytes) > 1% indicates that a LEFT SHIFT is Present. LAB L100.2620 2.0-7.7 X10 3/uL Normal Absolute Neut 5.6 LAB L100.2720 0.83-4.51 X10 3/ul Normal Absolute Lymph 1.35 Performed By: #### L100.0100 #### [facility] [address] [place], [address] URINALYSIS, COMPLETE Collected: 12/03/2017 Status: F Source: [place] 11:35 AM [facility] REPOSITORY Order Comment: How was Urine Obtained? CLEAN CATCH TYPE CODE TESTS RESULT OUT OF RANGE REFERENCE UNITS LAB L400.3000 Yellow COLOR Normal Yellow LAB L400.3050 Clear Normal CLARITY Sl. Cloudy LAB L400.3200 Normal mg/dl Normal GLUCOSE, UR Normal LAB L400.3300 Negative mg/dL Normal BILIRUBIN URINE Negative LAB L400.3400 Negative mg/dl Normal KETONE UR Negative LAB L400.3465 1.002-1.030 Normal SP.GR. DIPSTX 1.015 LAB L400.3550 5.0 - 8.0 pH UR Normal 5.0 LAB L400.3600 Negative mg/dl PROT Normal DIPSTX Negative LAB L400.3700 Normal mg/dl Normal UROBILI Normal LAB L400.3750 Negative Normal NITRITE UR Negative LAB L400.3780 Negative /ul High 10 OCCULT BLOOD-UR LAB L400.3800 Negative /ul High LEUK ESTERASE 500 LAB L400.4050 0-5 /hpf WBC Normal 10-25 SEEN LAB L400.4100 0-5 /hpf 0 Normal RBC-UA SEEN LAB L400.4150 5-10 /hpf SQUAM Normal EPI 5-10 SEEN LAB L400.4300 None Seen /hpf 0 Normal BACTERIA SEEN LAB L400.4350 <or=2+ /hpf 0 Normal MUCUS, URINE SEEN Performed By: #### L400.0001 #### [facility] [address] [facility] [place], [address] ,URINE Collected: 12/03/2017 Status: F Source: [place] 11:35 AM [facility] REPOSITORY TYPE CODE TESTS RESULT OUT OF REFERENCE UNITS RANGE LAB L400.8000 Negative Normal HCGUQUAL Negative Result Comment: Very dilute urine specimens, as indicated by a low specific gravity, may not contain sales representative aircraft levels of hCG. If is still suspected, a first morning urine specimen should be collected 48 hours later and tested. Performed By: #### L400.7600 #### [facility] [address] [facility] [address] [place], [place], [address] COMPREHENSIVE METABOLIC Collected: 12/03/2017 Status: F Source: [facility] 11:35 AM [facility] REPOSITORY TYPE CODE TESTS RESULT OUT OF RANGE REFERENCE UNITS LAB L501.0100 74-106 mg/dL Normal GLU 94 Result Comment: Please note revised GLUCOSE reference range effective 2017. LAB L501.1000 7-18 mg/dL Normal BUN 8 LAB L501.1100 0.55-1.02 mg/dL Normal CREAT,SERUM 0.73 Result Comment: The validity of the calculated GFR AND GFRAA in patients over 70 years has not been determined. Clinical correlation is essential. LAB L501.1110 >60 mL/min Normal EST GFR 100 Result Comment: Non- GFR Calc LAB L501.1115 >60 mL/min Normal EST GFR - AA 121 Result Comment: GFR Calc LAB L501.1255 ml/min Normal Estimated CRCL 89.93 LAB L501.1300 10-20 RATIO Normal BUN/CRE 11.0 LAB L501.1500 6.4-8. g/dL Normal 2 T PROT 7.3 LAB L501.1800 3.2-5. g/dL Normal 0 ALB 3.2 LAB L501.1950 2.2-4. g/dL Normal 2 GLOB 4.1 LAB L501.2000 0.9-2. RATIO Low 4 A/G 0.8 LAB L501.2200 8.5-10 mg/dL Low .1 CA 8.4 LAB L501.4100 15-37 U/L Low AST 13 LAB L501.4305 45-117 U/L Normal ALK P 50 LAB L501.4405 13-56 U/L Normal ALT 16 LAB L501.4600 0.20-1 mg/dL Normal .00 T BILI 0.30 LAB L501.5300 136-14 mmol/L Normal 5 NA 139 LAB L501.5600 3.5-5. mmol/L Normal 1 K 3.8 LAB L501.5900 98-107 mmol/L Normal CL 107 LAB L501.6100 21.0-3 mmol/L Normal 2.0 CO2 25.0 LAB L501.6200 5-15 Normal GAP 7 Performed By: #### L500.4050, L501.2450 #### [facility] [address] [place], [place], [address] LIPASE Collected: 12/03/2017 Status: F Source: [place] 11:35 AM [facility] REPOSITORY TYPE CODE TESTS RESULT OUT OF RANGE REFERENCE UNITS LAB L501.2450 73-393 U/L Normal LIPASE 93 Performed By: #### L500.4050, L501.2450 #### [facility] [address] [place], [place], [address] LACTIC ACID Collected: 12/03/2017 Status: F Source: [place] 11:35 AM [facility] REPOSITORY Order Comment: Yes/No query for Sepsis Lactate Rule Y TYPE CODE TESTS RESULT OUT OF RANGE REFERENCE UNITS LAB L503.6005 0.4-2.0 mmol/L Normal LACTIC ACID 0.8 Performed By: #### L503.6005 #### [facility] [address] [place], [place], [address] Observed: 12/03/2017 Status: F Source: [place] CULTURE, URINE 11:35 AM [facility] REPOSITORY Urine Culture ORGANISM 1: Mixed Gram Positive Organisms [place] Count 1000-10,000 MIX CULTURE Mixed contaminants. Submit a new specimen if indicated. Performed By: #### M100.0650 #### [facility] [address] [place], [place], [id number] ABDOMEN/PELVIS WITH Observed: 12/03/2017 Status: F Source: [place] CONTRAST 11:22 AM [facility] REPOSITORY [facility] Imaging Services [address] [place] [address] Abdomen/Pelvis WITH Contrast MR#: [id number] Acct: [id number] Name: ANDREW BERNARDO Rep #: [id number] : 1990 F 27 From: Aryan Harden DO PCP: Ahmet Cabello DO Status: REG ER Study: Abdomen/Pelvis WITH Contrast Date of Exam: 12/03/17 Exam# [id number] Ordering Dr: Alisa Quinn MD STUDY: CT ABDOMEN AND PELVIS WITH CONTRAST REASON FOR EXAM: Female, 27 years old. Abdominal pain x2 days RADIATION DOSAGE (If Supplied By Facility): CTDIvol = ( 21.28 ) mGy, DLP = ( 1749.82 ) mGycm TECHNIQUE: Transaxial images were obtained from the dome of the diaphragm to the symphysis pubis with oral contrast. 100 ml of Isovue 300 contrast was administered. Sagittal and coronal images were reconstructed. Individualized dose optimization techniques were used for this CT. COMPARISON: None. FINDINGS: The visualized lung bases are unremarkable. The visualized portions of the heart are within normal limits. Normal liver. Normal gallbladder and extrahepatic biliary system. Normal spleen. Normal pancreas. Normal bilateral adrenal glands. Normal right kidney. Normal left kidney. Normal visualized stomach. Normal small intestine. In the distal transverse colon as well as the descending colon in the region of the splenic flexure, there is circumferential wall thickening and edema of the colon compatible with colitis. The appendix is visualized and appears normal. Normal abdominal aorta. Normal inferior vena cava. Normal retroperitoneum. Normal urinary bladder. Normal visualized uterus. Normal abdominal wall. Normal osseous structures. CT/Abdomen/Pelvis WITH Contrast IMPRESSION: Distal transverse and descending colitis Electronically Signed: Aryan Harden DO at 13:29 EDT Tel , Service support , CC: Ahmet Cabello DO; Alisa Quinn MD Weights And Measures Sealer: Signed PROGRESS Observed: 11/29/2017 Status: COMPLETED Source: [place] 8:24 PM [facility] REPOSITORY HNO ID: [id number] Author: Ahmet Peres Service: (none) Author Type: Physician Type: Progress Notes Filed: 11/29/2017 8:30 PM Note Text: CC: Andrew Bernardo is a 27 year old female who presents to the office for physical HPI: Overall doing okay, Has been stressed out due to stressors at her new job at [employer], no SI or HI, is a newlywed and marriage going okay, wants to restart her Prozac due to these stressors, tolerated well in the past. Asthma, stable, no new concerns. Had labs drawn at hospital today PAST MEDICAL HISTORY Diagnosis Date - Asthma PAST SURGICAL HISTORY Procedure Laterality Date - EXTRACTION ERUPTED TOOTH/EXR Social History: Social History Substance Use Topics - Smoking status: Never Smoker - Smokeless tobacco: Never Used - Alcohol use Yes Comment: occasionally FAMILY HISTORY Problem Relation Age of Onset - Hypertension Mother - other (High Cholesterol) Mother - Cancer Father - Diabetes Maternal Grandmother - Alzheimer's Disease Maternal Grandfather - Diabetes Paternal Grandmother Current Outpatient prescriptions: FLUoxetine (PROZAC) 10 mg tablet Take 1 tablet by mouth once daily. ondansetron (ZOFRAN) 4 mg tablet Take 1 tablet by mouth every 8 hours as needed. meclizine (ANTIVERT) 25 mg tab Take 1 tablet by mouth three times daily as needed. albuterol HFA (VENTOLIN HFA) 90 mcg/actuation inhaler Inhale 2 Puffs as instructed every 4 hours as needed for Wheezing/Shortness of Breath. albuterol (PROVENTIL) 2.5 mg/0.5 mL nebulizer solution Use 0.5 mL via nebulizer every 4 hours as needed for Wheezing/Shortness of Breath. COMPOUNDED PRESCRIPTION [employer] Weight [facility] Dx:E66.9 norethindrone-e.estradiol-iron (MINASTRIN 24 FE) 1 mg-20 mcg(24) /75 mg (4) chew Take only active pills discard inactive and start new pack immediatley fluticasone (FLOVENT HFA) 220 mcg/actuation inhaler Inhale 1 Puff as instructed twice daily. + Air Compressor For Nebulized Meds Air compressor for nebulized inhaled treatments. Use as directed. fluticasone (FLONASE) 50 mcg/actuation nasal spray Use 2 Sprays in each nostril once daily. Rinse mouth after use. vitamin b complex (B COMPLEX 1) tab Take 1 tablet by mouth once daily. Cholecalciferol, Vitamin D3, (VITAMIN D) 1,000 unit tab Take 5,000 Units by mouth once daily. acyclovir (ZOVIRAX) 400 mg tablet Take 1 tablet by mouth three times daily. For rash mupirocin (BACTROBAN) 2 % ointment Apply 1 application to affected area three times daily. Location: on face lesions Allergies: ALLERGIES Allergen Reactions - Flu Vaccine Ts 2014* GI Upset Bodyaches, Needs preservative free - Red Dye GI Upset She has GI upset with red dye but it is transient and self limiting - Vitamin E Oil Rash - Wellbutrin [Bupropi* GI Upset ROS: See HPI PE: 11/29/17 1846 BP: 130/80 Pulse: 80 Resp: 16 Temp: 37 ?C (98.6 ?F) TempSrc: Left Tympanic Weight: 112.9 kg (249 lb) Gen: AANDO, NAD, non-toxic appearing, Pleasant, cooperative HEENT: NT/AC, PERRLA, EOMs intact b/l, nares clear and patent b/l, pharynx without erythema, exudate or lesions. Uvula midline. EACs without erythema or debris. TMs pearly paz with intact landmarks b/l. Neck: supple, No cervical LAD, no thyromegaly, no carotid bruits CV: RRR, normal S1 and S2, no murmurs, no gallops, no rubs, Pulses 2+ and symmetric in UE and LE b/l Lungs: normal respiratory effort, CTA b/l, no wheezing or rhonchi or rales Abd: soft, NT, ND, +BS, no hepatosplenomegaly MS: FROM all 4 extremities Neuro: CN II-XII intact b/l, strength 5/5 b/l UE and LE, DTRs 2/4 UE and LE, sensation intact. Skin: warm, dry, intact, papular rash on right cheek/chin ASSESSMENT/PLAN: 1. Well adult exam - ICD9: V70.0, ICD10: Z00.00 (primary diagnosis) - Encouraged monthly Breast Self Exam - Recommended calcium intake with supplements or by diet (goal of 6674-8225 mg/day - Recommended regular aerobic exercise. - Discussed need and benefit for weight loss. BMI 44.11 kg/(m2) - Follow up for annual exam in one year. 2. Rash - ICD9: 782.1, ICD10: R21 - rx as below, likely due to stress, cold sores vs. shingles - ACYCLOVIR 400 MG TABLET 3. Impetigo - ICD9: 684, ICD10: L01.00 - Skin care and contagious disease precautions discussed - Follow up if symptoms persist or fail to resolve - MUPIROCIN 2 % TOPICAL OINTMENT 4. Obesity, Class III, BMI 40-49.9 (morbid obesity) (HCC) - ICD9: 278.01, ICD10: E66.01 - Lengthy discussion in office today regarding diet and exercise. Discussed use of small plate to eat meals from, drink 1 glass of water 10-15 minutes prior to eating meal, drink 8 glasses of water daily, eat fresh fruit and vegetable during meal first then lean protein such as grilled/baked chicken breast or fish, limit carbohydrate intake (less pasta, breads, rice and snack foods) as well as limiting sugars (desserts etc). Important to count / track your calories and exercise as well. 5. Adjustment disorder with anxious mood - ICD9: 309.24, ICD10: F43.22 - restart Prozac, due to job situation Ahmet Peres DO To ER if develops chest pain, shortness of breath, or severe worsening of symptoms. Discussed risks, benefits, alternatives, and potential side effects of medications. Patient expressed understanding and agreed with the plan. Ahmet Peres DO [address] [place] [address] CNOV Observed: 11/29/2017 Status: COMPLETED Source: [place] 6:40 PM [facility] REPOSITORY Office Visit (FAMPWS) ANDREW BERNARDO ([id number]) 1990 F EMP Date Time Provider Department 11/29/17 6:40 PM AHMET PERES During your visit today, we recorded the following information about you: Temperature Pulse Respiration Blood pressure 98.6 degrees 80/minute 16/minute 130/80 Weight 112.9 kg Ahmet Peres DO 11/29/2017 8:30 PM Signed CC: Andrew Bernardo is a 27 year old female who presents to the office for physical HPI: Overall doing okay, Has been stressed out due to stressors at her new job at [employer], no SI or HI, is a newlywed and marriage going okay, wants to restart her Prozac due to these stressors, tolerated well in the past. Asthma, stable, no new concerns. Had labs drawn at hospital today PAST MEDICAL HISTORY Diagnosis Date - Asthma PAST SURGICAL HISTORY Procedure Laterality Date - EXTRACTION ERUPTED TOOTH/EXR Social History: Social History Substance Use Topics - Smoking status: Never Smoker - Smokeless tobacco: Never Used - Alcohol use Yes Comment: occasionally FAMILY HISTORY Problem Relation Age of Onset - Hypertension Mother - other (High Cholesterol) Mother - Cancer Father - Diabetes Maternal Grandmother - Alzheimer's Disease Maternal Grandfather - Diabetes Paternal Grandmother Current Outpatient prescriptions: FLUoxetine (PROZAC) 10 mg tablet Take 1 tablet by mouth once daily. ondansetron (ZOFRAN) 4 mg tablet Take 1 tablet by mouth every 8 hours as needed. meclizine (ANTIVERT) 25 mg tab Take 1 tablet by mouth three times daily as needed. albuterol HFA (VENTOLIN HFA) 90 mcg/actuation inhaler Inhale 2 Puffs as instructed every 4 hours as needed for Wheezing/Shortness of Breath. albuterol (PROVENTIL) 2.5 mg/0.5 mL nebulizer solution Use 0.5 mL via nebulizer every 4 hours as needed for Wheezing/Shortness of Breath. COMPOUNDED PRESCRIPTION [employer] Weight [facility] Dx:E66.9 norethindrone-e.estradiol-iron (MINASTRIN 24 FE) 1 mg-20 mcg(24) /75 mg (4) chew Take only active pills discard inactive and start new pack immediatley fluticasone (FLOVENT HFA) 220 mcg/actuation inhaler Inhale 1 Puff as instructed twice daily. + Air Compressor For Nebulized Meds Air compressor for nebulized inhaled treatments. Use as directed. fluticasone (FLONASE) 50 mcg/actuation nasal spray Use 2 Sprays in each nostril once daily. Rinse mouth after use. vitamin b complex (B COMPLEX 1) tab Take 1 tablet by mouth once daily. Cholecalciferol, Vitamin D3, (VITAMIN D) 1,000 unit tab Take 5,000 Units by mouth once daily. acyclovir (ZOVIRAX) 400 mg tablet Take 1 tablet by mouth three times daily. For rash mupirocin (BACTROBAN) 2 % ointment Apply 1 application to affected area three times daily. Location: on face lesions Allergies: ALLERGIES Allergen Reactions - Flu Vaccine 2014* GI Upset Bodyaches, Needs preservative free - Red Dye GI Upset She has GI upset with red dye but it is transient and self limiting - Vitamin E Oil Rash - Wellbutrin [Bupropi* GI Upset ROS: See HPI PE: 11/29/17 1846 BP: 130/80 Pulse: 80 Resp: 16 Temp: 37 ?C (98.6 ?F) TempSrc: Left Tympanic Weight: 112.9 kg (249 lb) Gen: AANDO, NAD, non-toxic appearing, Pleasant, cooperative HEENT: NT/AC, PERRLA, EOMs intact b/l, nares clear and patent b/l, pharynx without erythema, exudate or lesions. Uvula midline. EACs without erythema or debris. TMs pearly paz with intact landmarks b/l. Neck: supple, No cervical LAD, no thyromegaly, no carotid bruits CV: RRR, normal S1 and S2, no murmurs, no gallops, no rubs, Pulses 2+ and symmetric in UE and LE b/l Lungs: normal respiratory effort, CTA b/l, no wheezing or rhonchi or rales Abd: soft, NT, ND, +BS, no hepatosplenomegaly MS: FROM all 4 extremities Neuro: CN II-XII intact b/l, strength 5/5 b/l UE and LE, DTRs 2/4 UE and LE, sensation intact. Skin: warm, dry, intact, papular rash on right cheek/chin ASSESSMENT/PLAN: 1. Well adult exam - ICD9: V70.0, ICD10: Z00.00 (primary diagnosis) - Encouraged monthly Breast Self Exam - Recommended calcium intake with supplements or by diet (goal of 1865-9501 mg/day - Recommended regular aerobic exercise. - Discussed need and benefit for weight loss. BMI 44.11 kg/(m2) - Follow up for annual exam in one year. 2. Rash - ICD9: 782.1, ICD10: R21 - rx as below, likely due to stress, cold sores vs. shingles - ACYCLOVIR 400 MG TABLET 3. Impetigo - ICD9: 684, ICD10: L01.00 - Skin care and contagious disease precautions discussed - Follow up if symptoms persist or fail to resolve - MUPIROCIN 2 % TOPICAL OINTMENT 4. Obesity, Class III, BMI 40-49.9 (morbid obesity) (HCC) - ICD9: 278.01, ICD10: E66.01 - Lengthy discussion in office today regarding diet and exercise. Discussed use of small plate to eat meals from, drink 1 glass of water 10- 15 minutes prior to eating meal, drink 8 glasses of water daily, eat fresh fruit and vegetable during meal first then lean protein such as grilled/baked chicken breast or fish, limit carbohydrate intake (less pasta, breads, rice and snack foods) as well as limiting sugars (desserts etc). Important to count / track your calories and exercise as well. 5. Adjustment disorder with anxious mood - ICD9: 309.24, ICD10: F43.22 - restart Prozac, due to job situation Ahmet Peres DO To ER if develops chest pain, shortness of breath, or severe worsening of symptoms. Discussed risks, benefits, alternatives, and potential side effects of medications. Patient expressed understanding and agreed with the plan. Ahmet Peers DO [address] [place] [address] Referring Provider: AHMET PERES [[id number]] Allergies As of Date: 11/29/2017 Noted Allergy Reaction FLU VACCINE TS 2015-16(4YR,UP) 12/08/2015 8 - GI Upset Comments: Bodyaches, Needs preservative free RED DYE 12/15/2014 8 - GI Upset Comments: She has GI upset with red dye but it is transient and self limiting VITAMIN E OIL 10/29/2013 2 - Rash WELLBUTRIN (BUPROPION HCL) 11/29/2017 8 - GI Upset Date Reviewed: 11/29/2017 Reviewed by: Ahmet Peres - Fully Assessed Reason for Visit: Follow Up [171] Cmt: medications Primary Visit Diagnosis:Well adult exam [Z00.00] Other Visit Diagnoses:Rash [R21] Impetigo [L01.00] Obesity, Class III, BMI 40-49.9 (morbid obesity) ([facility]) [E66.01] Adjustment disorder with anxious mood [F43.22] Order(s):acyclovir (ZOVIRAX) 400 mg tabletTake 1 tablet by mouth three times daily. For rashDisp: 21 tabletRfl: 1 mupirocin (BACTROBAN) 2 % ointmentApply 1 application to affected area three times daily. Location: on face lesionsDisp: 30 gRfl: 1 Prescriptions as of 11/29/2017 Sig: FLUOXETINE 10 MG TABLET Take 1 tablet by mouth once d* ONDANSETRON HCL 4 MG TABLET Take 1 tablet by mouth every * MECLIZINE 25 MG TABLET Take 1 tablet by mouth three * ALBUTEROL SULFATE HFA 90 MCG/* Inhale 2 Puffs as instructed * ALBUTEROL SULFATE CONCENTRATE* Use 0.5 mL via nebulizer ever* COMPOUNDED PRESCRIPTION [facility] [employer] [facility] Dx:* NORETHINDRONE 1 MG-E. ESTRADI* Take only active pills discar* FLUTICASONE 220 MCG/ACTUATION* Inhale 1 Puff as instructed t* COMPOUNDED PRESCRIPTION Air compressor for nebulized * FLUTICASONE 50 MCG/ACTUATION * Use 2 Sprays in each nostril * VITAMIN B COMPLEX TABLET Take 1 tablet by mouth once d* CHOLECALCIFEROL (VITAMIN D3) * Take 5,000 Units by mouth onc* ACYCLOVIR 400 MG TABLET Take 1 tablet by mouth three * MUPIROCIN 2 % TOPICAL OINTMENT Apply 1 application to affect* Problem List As Of Date 11/29/2017 Noted Resolved Asthma, mild intermittent [J45.20] INVALID FOR* More... Obesity (BMI 30-39.9) [E66.9] INVALID FOR* Skin lesion of right arm [L98.9] INVALID FOR* Ganglion cyst of flexor tendon sheath [M67.40] INVALID FOR* Arm somatic dysfunction [M99.07] INVALID FOR* Segmental and somatic dysfunction of rib cage [*INVALID FOR* Somatic dysfunction of cervical region [M99.01] INVALID FOR* Neck pain [M54.2] INVALID FOR* Somatic dysfunction of thoracic region [M99.02] INVALID FOR* Cervical (neck) region somatic dysfunction [M99*INVALID FOR* Somatic dysfunction of head region [M99.00] INVALID FOR* Somatic dysfunction of rib [M99.08] INVALID FOR* Counseling and coordination of care [Z71.89] INVALID FOR* Priority: A More... Ovarian cyst, right [N83.201] INVALID FOR* Somatic dysfunction of hip region [M99.05] INVALID FOR* Obesity, Class III, BMI 40-49.9 (morbid obesity*INVALID FOR* Well adult exam [Z00.00] INVALID FOR* Impetigo [L01.00] INVALID FOR* Rash [R21] INVALID FOR* Adjustment disorder with anxious mood [F43.22] INVALID FOR* Prescriptions ordered this encounter Disp Refills Start End ACYCLOVIR 400 MG TABLET 21 t* 1 11/29/2017 Route: ORAL Sig: Take 1 tablet by mouth three times daily. For rash MUPIROCIN 2 % TOPICAL OINTMENT 30 g 1 11/29/2017 Route: TOPICAL Sig: Apply 1 application to affected area three times daily. Location: on face lesions Encounter Status:Closed by AHMET PERES DO on 11/29/17 CBC, EMPLOYEE Collected: 11/29/2017 Status: F Source: [place] 7:49 AM [facility] REPOSITORY TYPE CODE TESTS RESULT OUT OF RANGE REFERENCE UNITS LAB L100.1000 4.4-11.0 K/mm3 Normal WBC 6.2 LAB L100.1200 4.2-5.4 M/mm3 Normal RBC 4.28 LAB L100.1300 12.0-15.0 g/dl Normal HGB 12.9 LAB L100.1400 37-47 % Normal HCT 37.6 LAB L100.1500 81-99 fL Normal MCV 87.9 LAB L100.1600 27.0-32.0 pg Normal MCH 30.1 LAB L100.1700 32-36 g/gl Normal MCHC 34.3 LAB L100.1810 11.6-14.6 % Normal RDW CV 13.0 LAB L100.1820 35.1-43.9 fl Normal RDW SD 41.4 LAB L100.1900 150-450 K/mm3 Normal PLT 238 LAB L100.2000 6.2-12.0 fl Normal MPV 10.7 LAB L100.2110 47-70 % Normal NEUT% 61.6 LAB L100.2210 19-41 % Normal LY% 27.9 LAB L100.2310 0-10 % Normal MONO% 6.3 LAB L100.2410 0-5 % Normal EO% 3.5 LAB L100.2510 0-1 % Normal BASO% 0.5 LAB L100.2620 2.0-7.7 X10 3/uL Normal Absolute Neut 3.8 LAB L100.2720 0.83-4.51 X10 3/ul Normal Absolute Lymph 1.73 Performed By: #### L100.0200 #### [facility] [address] [place], [place], [address] URINALYSIS, EMPLOYEE Collected: 11/29/2017 Status: F Source: [place] 7:49 AM [facility] REPOSITORY TYPE CODE TESTS RESULT OUT OF RANGE REFERENCE UNITS LAB L400.3000 Yellow COLOR Normal Yellow LAB L400.3050 Clear Normal CLARITY Sl. Cloudy LAB L400.3200 Normal mg/dl Normal GLUCOSE, UR Normal LAB L400.3300 Negative mg/dL Normal BILIRUBIN URINE Negative LAB L400.3400 Negative mg/dl Normal KETONE UR Negative LAB L400.3465 1.002-1.030 Normal SP.GR. DIPSTX 1.015 LAB L400.3550 5.0 - 8.0 pH UR Normal 6.0 LAB L400.3600 Negative mg/dl High PROT 15 DIPSTX LAB L400.3700 Normal mg/dl Normal UROBILI Normal LAB L400.3750 Negative Normal NITRITE UR Negative LAB L400.3780 Negative /ul High 10 OCCULT BLOOD-UR LAB L400.3800 Negative /ul High LEUK ESTERASE 500 Performed By: #### L400.0100 #### [facility] [address] [place], [address] EMPLOYEE PROFILE Collected: 11/29/2017 Status: F Source: [place] 7:49 AM [facility] REPOSITORY TYPE CODE TESTS RESULT OUT OF RANGE REFERENCE UNITS LAB L501.0100 74-106 mg/dL Normal GLU 88 Result Comment: Please note revised GLUCOSE reference range effective 2017. LAB L501.1000 7-18 mg/dL Normal BUN 9 LAB L501.1100 0.55-1.02 mg/dL Normal CREAT,SERUM 0.79 Result Comment: The validity of the calculated GFR AND GFRAA in patients over 70 years has not been determined. Clinical correlation is essential. LAB L501.1110 >60 mL/min Normal EST GFR 91 Result Comment: Non- GFR Calc LAB L501.1115 >60 mL/min Normal EST GFR - AA 110 Result Comment: GFR Calc LAB L501.1300 10-20 RATIO Normal BUN/CRE 11.4 LAB L501.1400 2.6-6.0 mg/dL Normal URIC 5.3 Result Comment: The drugs N-Acetylcysteine and Metamizole may falsely depress this assay. LAB L501.1500 6.4-8.2 g/dL Normal T PROT 6.8 LAB L501.1800 3.2-5.0 g/dL Low ALB 3.0 LAB L501.1950 2.2-4.2 g/dL Normal GLOB 3.8 LAB L501.2000 0.9-2.4 RATIO Low A/G 0.8 LAB L501.2200 8.5-10.1 mg/dL Low CA 7.9 LAB L501.2300 2.5-4.9 mg/dL Normal PHOS 3.1 LAB L501.4100 15-37 U/L Low AST 11 LAB L501.4305 45-117 U/L Normal ALK P 48 LAB L501.4405 13-56 U/L Normal ALT 13 LAB L501.4600 0.20-1.00 mg/dL Normal T BILI 0.30 LAB L501.4700 0.00-0.30 mg/dL Normal D BILI 0.08 LAB L501.4900 200 mg/dL Normal CHOL 174 Result Comment: <200 mg/dL Desirable 200-240 mg/dL Borderline >240 mg/dL High Risk LAB L501.5000 mg/dL Normal TRIG 132 Result Comment: The drugs N-Acetylcysteine and Metamizole may falsely depress this assay. Serum Triglycerides Reference Interval Normal <150 mg/dL Borderline high 150 - 199 mg/dL High 200 - 499 mg/dL Very High > or = 500 mg/dL LAB L501.5300 136-145 mmol/L Normal NA 139 LAB L501.5600 3.5-5.1 mmol/L Normal K 3.8 LAB L501.5900 98-107 mmol/L Normal CL 107 LAB L501.6100 21.0-32.0 mmol/L Normal CO2 27.0 LAB L501.6200 5-15 Normal 5 GAP LAB L501.6400 mg/dL Normal HDL 45 Result Comment: The drugs N-Acetylcysteine and Metamizole may falsely depress this assay. Reference Range HDL <40 mg/dL Low HDL Cholesterol HDL >or= 60 mg/dL High HDL Cholesterol LAB L501.6475 Normal CHOL:HDL 3.90 LAB L501.6500 0-130 mg/dL Normal LDL 103 LAB L501.6600 5-40 mg/dL Normal VLDL 26 LAB L504.2610 84-246 U/L Normal LDH 152 Performed By: #### L500.2900 #### [facility] [address] [place], [address] NICOTINE URINE DRUG Collected: 11/29/2017 Status: F Source: madKast SCREEN 7:49 AM [facility] REPOSITORY TYPE CODE TESTS RESULT OUT OF RANGE REFERENCE UNITS LAB L505.6250 TO BE Normal CONFIRMED Result Comment: CONFIRMATORY TESTING FOR ALL POSITIVE URINE DRUG SCREEN RESULTS WILL ONLY BE SENT OUT UPON PHYSICIAN ORDER. The results of Urine Drug Screen methods provide only preliminary analytical test results. A more specific alternate chemical method must be used in order to obtain a confirmed analytical result. Gas chromatography/mass spectrometery (GC/MS) is the preferred confirmatory method. Clinical consideration and professional judgement should be applied to any drug of abuse test result, particularly when preliminary positive results are used. LAB L505.6270 <200 ng/mL Normal COT DRG Negative SCREEN Result Comment: Cotinine is the first-stage metabolite of Nicotine. Performed By: #### L505.6240 #### [facility] [address] [place], [address] [facility] Observed: 11/07/2017 Status: COMPLETED Source: [place] 12:00 AM [facility] REPOSITORY Telephone (FAMPWS) ANDREW BERNARDO ([id number]) 1990 F E[employer] Date Time Provider Department 11/07/17 [facility] During your visit today, we recorded the following information about you: Sury Francois Psr 11/07/2017 10:16 AM Signed Patient called in today asking if she could be put back on Prozac. I did schedule her an appointment but it is not til the of this month. Please advise. Ahmet Peres DO 11/07/2017 1:48 PM Signed Yes, please inform her that okay to restart Prozac, will follow up as scheduled DO Elizabet Cummins LPN 11/07/2017 3:28 PM Signed Pt notified per PSR. Allergies As of Date: 11/07/2017 Noted Allergy Reaction FLU VACCINE TS 2014-(4YR,UP) 12/08/2015 8 - GI Upset Comments: Bodyaches, Needs preservative free RED DYE 12/15/2014 8 - GI Upset Comments: She has GI upset with red dye but it is transient and self limiting VITAMIN E OIL 10/29/2013 2 - Rash Date Reviewed: 08/11/2017 Reviewed by: Todd Otto LPN - Fully Assessed Reason for Visit: Medication Question [3098] Order(s):FLUoxetine (PROZAC) 10 mg tabletTake 1 tablet by mouth once daily.Disp: 90 tabletRfl: 0 Prescriptions as of 11/07/2017 Sig: FLUOXETINE 10 MG TABLET Take 1 tablet by mouth once d* ONDANSETRON HCL 4 MG TABLET Take 1 tablet by mouth every * MECLIZINE 25 MG TABLET Take 1 tablet by mouth three * ALBUTEROL SULFATE HFA 90 MCG/* Inhale 2 Puffs as instructed * ALBUTEROL SULFATE CONCENTRATE* Use 0.5 mL via nebulizer ever* COMPOUNDED PRESCRIPTION [facility] Dx:* NORETHINDRONE 1 MG-E. ESTRADI* Take only active pills discar* FLUTICASONE 220 MCG/ACTUATION* Inhale 1 Puff as instructed t* COMPOUNDED PRESCRIPTION Air compressor for nebulized * FLUTICASONE 50 MCG/ACTUATION * Use 2 Sprays in each nostril * VITAMIN B COMPLEX TABLET Take 1 tablet by mouth once d* CHOLECALCIFEROL (VITAMIN D3) * Take 5,000 Units by mouth onc* Problem List As Of Date 11/07/2017 Noted Resolved Asthma, mild intermittent [J45.20] INVALID FOR* More... Obesity (BMI 30-39.9) [E66.9] INVALID FOR* Skin lesion of right arm [L98.9] INVALID FOR* Ganglion cyst of flexor tendon sheath [M67.40] INVALID FOR* Arm somatic dysfunction [M99.07] INVALID FOR* Segmental and somatic dysfunction of rib cage [*INVALID FOR* Somatic dysfunction of cervical region [M99.01] INVALID FOR* Neck pain [M54.2] INVALID FOR* Somatic dysfunction of thoracic region [M99.02] INVALID FOR* Cervical (neck) region somatic dysfunction [M99*INVALID FOR* Somatic dysfunction of head region [M99.00] INVALID FOR* Somatic dysfunction of rib [M99.08] INVALID FOR* Counseling and coordination of care [Z71.89] INVALID FOR* Priority: A More... Ovarian cyst, right [N83.201] INVALID FOR* Somatic dysfunction of hip region [M99.05] INVALID FOR* Prescriptions ordered this encounter Disp Refills Start End FLUOXETINE 10 MG TABLET 90 t* 0 11/07/2017 Route: ORAL Sig: Take 1 tablet by mouth once daily. Encounter Status:Closed by SURY BILL on 11/07/17 CNOV Observed: 08/11/2017 Status: COMPLETED Source: [place] 2:40 PM [facility] RE[facility] Office Visit (FAMPWS) ANDREW BERNARDO ([id number]) 1990 F EMP Date Time Provider Department 08/11/17 2:40 PM [facility] During your visit today, we recorded the following information about you: Pulse Respiration Blood pressure Weight 76/minute 16/minute 112/74 110.7 kg Blossom DeD ios APRN.CNP 08/11/2017 2:55 PM Signed HPI/CC: Andrew Bernardo is a 27 year old female who presents with concern of dizzy sensation. Started suddenly since this morning. This is new onset. Associated symptoms include nausea. Denies vomting and syncope. Symptoms are intermittent and last a few minutes to 15 minutes and made worse by head movement. Symptoms are alleviated by rest. Recent events include no obvious precipitating event/injury.. Treatments tried include nothing. REVIEW OF SYSTEMS GENERAL: No weight loss, malaise or fevers HEENT: Negative for frequent or significant headaches, No changes in hearing or vision, no nose bleeds or other nasal problems NEURO: Migraine headaches Reviewed PMHx, PSHx, social Hx, medications and allergies. PHYSICAL EXAMINATION: BP 112/74 Pulse 76 Resp 16 Wt 110.7 kg (244 lb) BMI 43.22 kg/m? General appearance: Well appearing, alert, in no acute distress, well-hydrated, well nourished., Morbidly obese Head: Normocephalic, no masses, lesions, tenderness or abnormalities Eyes: Anicteric sclera. Pupils are equally round and reactive to light. Extraocular movements are intact. Ears: External ears normal, canals clear, TM's normal Nose/Sinuses: Nares normal, septum midline, mucosa normal, no drainage or sinus tenderness Oropharynx: Lips, mucosa, and tongue normal, teeth and gums normal, oropharynx normal Neck: Supple, no adenopathy; thyroid symmetric, normal size, no bruits Lungs: Lungs clear to auscultation. No wheezing, rhonchi, rales Heart:: S1 and S2 normal, RRR without murmur, gallop, or rubs. No ectopy Neuro: Awake, alert and oriented x 3, Cranial nerves II-XII grossly intact, Reflexes symmetrical, Normal gait and No involuntary motions. [place] [facility] Maneuver Results: negative ASSESSMENT/PLAN: 1. Dizziness - ICD9: 780.4, ICD10: R42 - meclizine - hydration - f/u PRN - off work today Blossom De Dios APRN.EDUCATIONAL ADMINISTRATION TEACHER Referring Provider: SELF [200] Allergies As of Date: 08/11/2017 Noted Allergy Reaction FLU VACCINE TS 2014-(4YR,UP) 12/08/2015 8 - GI Upset Comments: Bodyaches, Needs preservative free RED DYE 12/15/2014 8 - GI Upset Comments: She has GI upset with red dye but it is transient and self limiting VITAMIN E OIL 10/29/2013 2 - Rash Date Reviewed: 08/11/2017 Reviewed by: Todd Otto LPN - Fully Assessed Reason for Visit: Dizziness [36] Cmt: started this morning Nausea [70] Reason For Visit History Recorded Primary Visit Diagnosis:Dizziness [R42] Order(s):meclizine (ANTIVERT) 25 mg tabTake 1 tablet by mouth three times daily as needed.Disp: 21 tabletRfl: 0 Prescriptions as of 08/11/2017 Sig: ALBUTEROL SULFATE HFA 90 MCG/* Inhale 2 Puffs as instructed * ALBUTEROL SULFATE CONCENTRATE* Use 0.5 mL via nebulizer ever* COMPOUNDED PRESCRIPTION [facility] Weight [facility] Dx:* NORETHINDRONE 1 MG-E. ESTRADI* Take only active pills discar* FLUTICASONE 220 MCG/ACTUATION* Inhale 1 Puff as instructed t* COMPOUNDED PRESCRIPTION Air compressor for nebulized * FLUTICASONE 50 MCG/ACTUATION * Use 2 Sprays in each nostril * VITAMIN B COMPLEX TABLET Take 1 tablet by mouth once d* CHOLECALCIFEROL (VITAMIN D3) * Take 5,000 Units by mouth onc* MECLIZINE 25 MG TABLET Take 1 tablet by mouth three * Problem List As Of Date 08/11/2017 Noted Resolved Asthma, mild intermittent [J45.20] INVALID FOR* More... Obesity (BMI 30-39.9) [E66.9] INVALID FOR* Skin lesion of right arm [L98.9] INVALID FOR* Ganglion cyst of flexor tendon sheath [M67.40] INVALID FOR* Arm somatic dysfunction [M99.07] INVALID FOR* Segmental and somatic dysfunction of rib cage [*INVALID FOR* Somatic dysfunction of cervical region [M99.01] INVALID FOR* Neck pain [M54.2] INVALID FOR* Somatic dysfunction of thoracic region [M99.02] INVALID FOR* Cervical (neck) region somatic dysfunction [M99*INVALID FOR* Somatic dysfunction of head region [M99.00] INVALID FOR* Somatic dysfunction of rib [M99.08] INVALID FOR* Counseling and coordination of care [Z71.89] INVALID FOR* Priority: A More... Ovarian cyst, right [N83.201] INVALID FOR* Somatic dysfunction of hip region [M99.05] INVALID FOR* Prescriptions ordered this encounter Disp Refills Start End MECLIZINE 25 MG TABLET 21 t* 0 08/11/2017 Route: ORAL Sig: Take 1 tablet by mouth three times daily as needed. Medications Discontinued During This Encounter buPROPion XL (WELLBUTRIN XL) 150 mg * 90 t* 1 08/03/2016 08/11/2017 Route: ORAL Sig: Take 1 tablet by mouth once daily. Disc: Reason for discontinue is not on file. predniSONE (DELTASONE) 10 mg tablet 21 t* 0 11/04/2016 08/11/2017 Sig: Take 4 tabs daily for 3 days, then 2 tabs daily for 3 days, then 1 tab daily for 3 days with food. Disc: Reason for discontinue is not on file. Letter Text Blossom De Dios CNP [address], [place] [address] 08/11/2017 Andrew Bernardo CC# [id number] [place] [id number] TO WHOM IT MAY CONCERN: This is to certify that Ms. Andrew Bernardo has been under my care for illness and was unable to work 08/11/2017. Sincerely yours, Blossom De Dios CNP Encounter Status:Closed by BLOSSOM DE DIOS CNP on 08/11/17 PROGRESS Observed: 08/11/2017 Status: COMPLETED Source: [place] 2:35 PM [facility] [place] REPOSITORY HNO ID: [id number] Author: Blossom Matt (Olu) Lanre Service: (none) Author Type: Nurse Practitioner Type: Progress Notes Filed: 08/11/2017 2:55 PM Note Text: HPI/CC: Andrew Bernardo is a 27 year old female who presents with concern of dizzy sensation. Started suddenly since this morning. This is new onset. Associated symptoms include nausea. Denies vomting and syncope. Symptoms are intermittent and last a few minutes to 15 minutes and made worse by head movement. Symptoms are alleviated by rest. Recent events include no obvious precipitating event/injury.. Treatments tried include nothing. REVIEW OF SYSTEMS GENERAL: No weight loss, malaise or fevers HEENT: Negative for frequent or significant headaches, No changes in hearing or vision, no nose bleeds or other nasal problems NEURO: Migraine headaches Reviewed PMHx, PSHx, social Hx, medications and allergies. PHYSICAL EXAMINATION: BP 112/74 Pulse 76 Resp 16 Wt 110.7 kg (244 lb) BMI 43.22 kg/m? General appearance: Well appearing, alert, in no acute distress, well-hydrated, well nourished., Morbidly obese Head: Normocephalic, no masses, lesions, tenderness or abnormalities Eyes: Anicteric sclera. Pupils are equally round and reactive to light. Extraocular movements are intact. Ears: External ears normal, canals clear, TM's normal Nose/Sinuses: Nares normal, septum midline, mucosa normal, no drainage or sinus tenderness Oropharynx: Lips, mucosa, and tongue normal, teeth and gums normal, oropharynx normal Neck: Supple, no adenopathy; thyroid symmetric, normal size, no bruits Lungs: Lungs clear to auscultation. No wheezing, rhonchi, rales Heart:: S1 and S2 normal, RRR without murmur, gallop, or rubs. No ectopy Neuro: Awake, alert and oriented x 3, Cranial nerves II-XII grossly intact, Reflexes symmetrical, Normal gait and No involuntary motions. [place] [facility] [facility]ver Results: negative ASSESSMENT/PLAN: 1. 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 albuterol (PROVENTIL) 2.5 mg/0.5 mL nebulizer solution Use 0.5 mL via nebulizer every 4 hours as needed for Wheezing/Shortness of Breath. COMPOUNDED PRESCRIPTION [facility] Weight Program Dx:E66.9 norethindrone-e.estradiol-iron (MINASTRIN 24 FE) 1 mg-20 mcg(24) /75 mg (4) chew Take only active pills discard inactive and start new pack immediatley predniSONE (DELTASONE) 10 mg tablet Take 4 tabs daily for 3 days, then 2 tabs daily for 3 days, then 1 tab daily for 3 days with food. buPROPion XL (WELLBUTRIN XL) 150 mg 24 hr tablet Take 1 tablet by mouth once daily. fluticasone (FLOVENT HFA) 220 mcg/actuation inhaler Inhale 1 Puff as instructed twice daily. + Air Compressor For Nebulized Meds Air compressor for nebulized inhaled treatments. Use as directed. fluticasone (FLONASE) 50 mcg/actuation nasal spray Use 2 Sprays in each nostril once daily. Rinse mouth after use. vitamin b complex (B COMPLEX 1) tab Take 1 tablet by mouth once daily. Cholecalciferol, Vitamin D3, (VITAMIN D) 1,000 unit tab Take 5,000 Units by mouth once daily. No current facility-administered medications for this visit. ALLERGIES Allergen Reactions - Flu Vaccine Ts 2014* GI Upset Bodyaches, Needs preservative free - Red Dye GI Upset She has GI upset with red dye but it is transient and self limiting - Vitamin E Oil Rash Social History Marital status: Single Spouse name: Years of education: Number of children: Occupational History Occupation Employer Comment [employer]* Social History Main Topics Smoking status: Never Smoker Smokeless tobacco: Never Used Alcohol use: Yes Comment: occasionally Drug use: No Sexual activity: Yes Partners with: Male Comment: since September 2012, uses [facility] Social History Narrative [employer], enjoys riding horses, engaged ROS: See HPI PE: BP 136/80 Pulse 80 Temp (Src) 97.7 (Right Tympanic) Resp 16 Wt 240 lb (108.9kg) Gen: AANDOX3, NAD, non-toxic appearing HEENT: PERRLA, EOMs intact b/l, nares without drainage, pharynx without erythema, exudate, lesions, or drainage. Uvula midline. Neck: No LAD, no thyromegaly, no meningismus. Suboccipital TTP and fullness on right C3-7FRrSBl Elevated right 1st rib inhalation dysfunction with TTP T4-8ERrSBl CV: RRR, no murmur Lungs: CTA b/l, no wheezing Skin: No rashes, lesions, or wounds on exposed skin. ASSESSMENT/PLAN: 1. Neck pain, acute - ICD9: 723.1, ICD10: M54.2 (primary diagnosis) OMT: Discussed risks, benefits, alternatives, and potential SEs of treatment. Patient wished to proceed with OMT. OMT was performed to the head, cervical region, thoracic region, and ribs including soft tissue, functional methods, and HVLA. Patient tolerated treatment well with good release, increase ROM, and decrease in pain, without complications. Instructed patient to drink plenty of water. Gentle stretches at home. 2. Ketogenic diet monitoring encounter - ICD9: V65.3, ICD10: Z71.3 - COMP METABOLIC PANEL 3. Somatic dysfunction of head region - ICD9: 739.0, ICD10: M99.00 OMT: Discussed risks, benefits, alternatives, and potential SEs of treatment. Patient wished to proceed with OMT. OMT was performed to the head, cervical region, thoracic region, and ribs including soft tissue, functional methods, and HVLA. Patient tolerated treatment well with good release, increase ROM, and decrease in pain, without complications. Instructed patient to drink plenty of water. Gentle stretches at home 4. Somatic dysfunction of cervical region - ICD9: 739.1, ICD10: M99.01 OMT: Discussed risks, benefits, alternatives, and potential SEs of treatment. Patient wished to proceed with OMT. OMT was performed to the head, cervical region, thoracic region, and ribs including soft tissue, functional methods, and HVLA. Patient tolerated treatment well with good release, increase ROM, and decrease in pain, without complications. Instructed patient to drink plenty of water. Gentle stretches at home 5. Somatic dysfunction of thoracic region - ICD9: 739.2, ICD10: M99.02 OMT: Discussed risks, benefits, alternatives, and potential SEs of treatment. Patient wished to proceed with OMT. OMT was performed to the head, cervical region, thoracic region, and ribs including soft tissue, functional methods, and HVLA. Patient tolerated treatment well with good release, increase ROM, and decrease in pain, without complications. Instructed patient to drink plenty of water. Gentle stretches at home 6. Somatic dysfunction of rib - ICD9: 739.8, ICD10: M99.08 OMT: Discussed risks, benefits, alternatives, and potential SEs of treatment. Patient wished to proceed with OMT. OMT was performed to the head, cervical region, thoracic region, and ribs including soft tissue, functional methods, and HVLA. Patient tolerated treatment well with good release, increase ROM, and decrease in pain, without complications. Instructed patient to drink plenty of water. Gentle stretches at home Ahmet Peres DO Return if no improvement. Follow up with Ahmet Peres DO. Discussed risks, benefits, alternatives, and potential side effects of medications. Patient/Guardian expressed understanding and agreed with the plan. See patient instructions. Ahmet Peres DO [address] [place] [address] CNOV Observed: 07/12/2017 Status: COMPLETED Source: [place] 7:20 PM [facility] REPOSITORY Office Visit (FAMPWS) ANDREW BERNARDO ([id number]) [address] 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 albuterol (PROVENTIL) 2.5 mg/0.5 mL nebulizer solution Use 0.5 mL via nebulizer every 4 hours as needed for Wheezing/Shortness of Breath. COMPOUNDED PRESCRIPTION [facility] Weight Program Dx:E66.9 norethindrone-e.estradiol-iron (MINASTRIN 24 FE) 1 mg-20 mcg(24) /75 mg (4) chew Take only active pills discard inactive and start new pack immediatley predniSONE (DELTASONE) 10 mg tablet Take 4 tabs daily for 3 days, then 2 tabs daily for 3 days, then 1 tab daily for 3 days with food. buPROPion XL (WELLBUTRIN XL) 150 mg 24 hr tablet Take 1 tablet by mouth once daily. fluticasone (FLOVENT HFA) 220 mcg/actuation inhaler Inhale 1 Puff as instructed twice daily. + Air Compressor For Nebulized Meds Air compressor for nebulized inhaled treatments. Use as directed. fluticasone (FLONASE) 50 mcg/actuation nasal spray Use 2 Sprays in each nostril once daily. Rinse mouth after use. vitamin b complex (B COMPLEX 1) tab Take 1 tablet by mouth once daily. Cholecalciferol, Vitamin D3, (VITAMIN D) 1,000 unit tab Take 5,000 Units by mouth once daily. No current facility-administered medications for this visit. ALLERGIES Allergen Reactions - Flu Vaccine Ts 2014* GI Upset Bodyaches, Needs preservative free - Red Dye GI Upset She has GI upset with red dye but it is transient and self limiting - Vitamin E Oil Rash Social History Marital status: Single Spouse name: Years of education: Number of children: Occupational History Occupation Employer Comment [employer]* Social History Main Topics Smoking status: Never Smoker Smokeless tobacco: Never Used Alcohol use: Yes Comment: occasionally Drug use: No Sexual activity: Yes Partners with: Male Comment: since September 2012, uses OCPs Social History Narrative [employer], enjoys riding horses, engaged ROS: See HPI PE: BP 136/80 Pulse 80 Temp (Src) 97.7 (Right Tympanic) Resp 16 Wt 240 lb (108.9kg) Gen: AANDOX3, NAD, non-toxic appearing HEENT: PERRLA, EOMs intact b/l, nares without drainage, pharynx without erythema, exudate, lesions, or drainage. Uvula midline. Neck: No LAD, no thyromegaly, no meningismus. Suboccipital TTP and fullness on right C3-7FRrSBl Elevated right 1st rib inhalation dysfunction with TTP T4-8ERrSBl CV: RRR, no murmur Lungs: CTA b/l, no wheezing Skin: No rashes, lesions, or wounds on exposed skin. ASSESSMENT/PLAN: 1. Neck pain, acute - ICD9: 723.1, ICD10: M54.2 (primary diagnosis) OMT: Discussed risks, benefits, alternatives, and potential SEs of treatment. Patient wished to proceed with OMT. OMT was performed to the head, cervical region, thoracic region, and ribs including soft tissue, functional methods, and HVLA. Patient tolerated treatment well with good release, increase ROM, and decrease in pain, without complications. Instructed patient to drink plenty of water. Gentle stretches at home. 2. Ketogenic diet monitoring encounter - ICD9: V65.3, ICD10: Z71.3 - COMP METABOLIC PANEL 3. Somatic dysfunction of head region - ICD9: 739.0, ICD10: M99.00 OMT: Discussed risks, benefits, alternatives, and potential SEs of treatment. Patient wished to proceed with OMT. OMT was performed to the head, cervical region, thoracic region, and ribs including soft tissue, functional methods, and HVLA. Patient tolerated treatment well with good release, increase ROM, and decrease in pain, without complications. Instructed patient to drink plenty of water. Gentle stretches at home 4. Somatic dysfunction of cervical region - ICD9: 739.1, ICD10: M99.01 OMT: Discussed risks, benefits, alternatives, and potential SEs of treatment. Patient wished to proceed with OMT. OMT was performed to the head, cervical region, thoracic region, and ribs including soft tissue, functional methods, and HVLA. Patient tolerated treatment well with good release, increase ROM, and decrease in pain, without complications. Instructed patient to drink plenty of water. Gentle stretches at home 5. Somatic dysfunction of thoracic region - ICD9: 739.2, ICD10: M99.02 OMT: Discussed risks, benefits, alternatives, and potential SEs of treatment. Patient wished to proceed with OMT. OMT was performed to the head, cervical region, thoracic region, and ribs including soft tissue, functional methods, and HVLA. Patient tolerated treatment well with good release, increase ROM, and decrease in pain, without complications. Instructed patient to drink plenty of water. Gentle stretches at home 6. Somatic dysfunction of rib - ICD9: 739.8, ICD10: M99.08 OMT: Discussed risks, benefits, alternatives, and potential SEs of treatment. Patient wished to proceed with OMT. OMT was performed to the head, cervical region, thoracic region, and ribs including soft tissue, functional methods, and HVLA. Patient tolerated treatment well with good release, increase ROM, and decrease in pain, without complications. Instructed patient to drink plenty of water. Gentle stretches at home Ahmet Peres DO Return if no improvement. Follow up with Ahmet Peres DO. Discussed risks, benefits, alternatives, and potential side effects of medications. Patient/Guardian expressed understanding and agreed with the plan. See patient instructions. Ahmet Peres DO [address] [place] [address] Referring Provider: SELF [[id number]] Allergies As of Date: 07/12/2017 Noted Allergy Reaction FLU VACCINE TS 2014-16(4YR,UP) 12/08/2015 8 - GI Upset Comments: Bodyaches, Needs preservative free RED DYE 12/15/2014 8 - GI Upset Comments: She has GI upset with red dye but it is transient and self limiting VITAMIN E OIL 10/29/2013 2 - Rash Date Reviewed: 12/03/2016 Reviewed by: Todd Otto LPN - Fully Assessed Reason for Visit: OMT [Other] Primary Visit Diagnosis:Neck pain, acute [M54.2] Other Visit Diagnoses:Ketogenic diet monitoring encounter [Z71.3] Somatic dysfunction of head region [M99.00] Somatic dysfunction of cervical region [M99.01] Somatic dysfunction of thoracic region [M99.02] Somatic dysfunction of rib [M99.08] Order(s):COMP METABOLIC PANEL [SQCMP] Order #: [id number] FUTURE Prescriptions as of 07/12/2017 Sig: ALBUTEROL SULFATE HFA 90 MCG/* Inhale 2 Puffs as instructed * ALBUTEROL SULFATE CONCENTRATE* Use 0.5 mL via nebulizer ever* COMPOUNDED PRESCRIPTION [facility] Dx:* NORETHINDRONE 1 MG-E. ESTRADI* Take only active pills discar* PREDNISONE 10 MG TABLET Take 4 tabs daily for 3 days,* BUPROPION XL 150 MG TAB Take 1 tablet by mouth once d* FLUTICASONE 220 MCG/ACTUATION* Inhale 1 Puff as instructed t* COMPOUNDED PRESCRIPTION Air compressor for nebulized * FLUTICASONE 50 MCG/ACTUATION * Use 2 Sprays in each nostril * VITAMIN B COMPLEX TABLET Take 1 tablet by mouth once d* CHOLECALCIFEROL (VITAMIN D3) * Take 5,000 Units by mouth onc* Problem List As Of Date 07/12/2017 Noted Resolved Asthma, mild intermittent [J45.20] INVALID FOR* More... Obesity (BMI 30-39.9) [E66.9] INVALID FOR* Skin lesion of right arm [L98.9] INVALID FOR* Ganglion cyst of flexor tendon sheath [M67.40] INVALID FOR* Arm somatic dysfunction [M99.07] INVALID FOR* Segmental and somatic dysfunction of rib cage [*INVALID FOR* Somatic dysfunction of cervical region [M99.01] INVALID FOR* Neck pain [M54.2] INVALID FOR* Somatic dysfunction of thoracic region [M99.02] INVALID FOR* Cervical (neck) region somatic dysfunction [M99*INVALID FOR* Somatic dysfunction of head region [M99.00] INVALID FOR* Somatic dysfunction of rib [M99.08] INVALID FOR* Counseling and coordination of care [Z71.89] INVALID FOR* Priority: A More... 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 Observed: 07/10/2017 Status: F Source: [place]AN[place] REPORT 10:34 AM [facility] [address] [place] [address] OFFICE VISIT Date of Service: 07/10/17 MR#: [id number] Acct: [id number] Name: ANDREW BERNARDO Rep #: [id number] : 1990 Provider: Ne Weller MD Age/Sex: 27/F Location: [facility] [place] Status: Signed Intake Vital Signs07/10/17 Height 5 ft 3 in 07/10/17 Weight: 241 lb 07/10/17 Body Mass Index (BMI) 42.7 07/10/17 Blood Pressure 121/79 Intake Visit Reasons: Discuss labs Chief Complaint: Follow Up Labs Heel Seat Filler Required: No Is patient in pain?: No Allergies No Known Allergies Allergy (Unverified 07/10/17 09:51) Medications norethindrone 1 mg-e. estradiol 20 mcg (24)-iron 75 mg (4) chew tablet 1 tab PO QDAY #28 tab 04/20/17 [Rx Confirmed 07/10/17] cholecalciferol (vitamin D3) 1,000 unit capsule 1,000 unit PO QDAY 07/06/17 [History Confirmed 07/10/17] methylprednisolone 4 mg tablets in a dose pack See Label Instructions PO PER PKG DIR #21 tab 07/06/17 [Rx Confirmed 07/10/17] Is last menstrual period known: No Post menopausal: No Patient : No : No ON LICENSE OF [facility] Medical History Anxiety with depression (Acute) Anxiety and depression (Acute) Asthma (Acute) Back pain (Acute) Neck pain (Acute) Ovarian cyst (Acute) SOB (shortness of breath) (Acute) Surgical History History of wisdom tooth extraction, class II edentulism (Acute) Family History Mother Cancer Cervical - Hyst Social History Smoking Status: Never smoker alcohol intake: never substance use type: does not use caffeine: Yes frequency: 1-2 times per week seatbelt use: always do you feel safe at home: Yes additional social history: Engaged- 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 she has a history of irregular menses and has been on minastrin and doing wel lbut is still gaining weight. she has been seeing a machine bobbin winder and has tracked and has still had issues. bloodwork and thyroid testing all normal. s he ahs an appointment this week with her PCP mark and her machine bobbin winder. Female Reproductive History Cycle Length: 21-35 Pregancy History 0 Elective abortions Hx Para Spontaneous abortions ROS Const Constitutional: Reports weight gain and difficulty sleeping ENT ENT: Denies dry mouth GI GI: Reports system reviewed and no additional complaints, except as docu : Reports as per HPI; denies difficulty urinating, blood in urine, pelvic pain, urinary frequency, urinary incontinence, urinary hesitancy, urinary urgency, vaginal discharge, vaginal dryness, vaginal odor, vaginal itching, other, painful urination or nipple discharge Skin Skin/Breast: Denies hair loss, change in hair, dry skin, breast pain, breast skin changes, breast lump or nipple discharge Exam Const General: cooperative, healthy appearing, comfortable, no acute distress, well developed Orientation: alert HENMT Head: normal to inspection, normocephalic Ears: hearing grossly normal bilaterally, external ears normal Nose: external nose normal, nares normal Face and sinus: normal facial exam Neck Neck: normal visual inspection, trachea midline, no lymphadenopathy Thyroid: thyroid normal Resp Effort AND Inspection: normal respiratory effort Musc Other: gross motor intact no deficits, full bilateral strength Skin General: no rashes or lesions noted Neuro Motor: muscle tone normal throughout Assessment AND Plan Problems 1. Elevated testosterone level in female R79.89 repeat levels normal and normal us 2. Weight gain R63.5 Plan discussed and recommend machine bobbin winder and pcp follow up. no clear diagnosis of pcos recommend high protein and exercise. Coding Level of Care Code Off vis,est,level 3 Diagnoses Elevated testosterone level in female R79.89 Weight gain R63.5 07/10/17 1034 <Electronically signed by Ne Weller MD> Date Ne Weller MD Cosigner Signature: Date (if applicable) CC: URGENT CARE VISIT Observed: 07/06/2017 Status: F Source: DANNY REPORT 11:26 AM [facility] [address] [place] [address] OFFICE VISIT Date of Service: 07/06/17 MR#: [id number] Acct: [id number] Name: ANDREW BERNARDO Rep #: [id number] : 1990 Provider: Winston SHANKAR Age/Sex: 27/F Location: [facility] Status: Signed Intake Vital Signs07/06/17 Height 5 ft 3.5 in Intake Visit Reasons: URI Chief Complaint: cough Allergies No Known Allergies Allergy (Unverified 07/06/17 10:57) Medications norethindrone 1 mg-e. estradiol 20 mcg (24)-iron 75 mg (4) chew tablet 1 tab PO QDAY #28 tab 04/20/17 [Rx Confirmed 07/06/17] azithromycin 250 mg tablet 250 mg PO QDAY #6 tab 07/06/17 [Rx Confirmed 07/06/17] cholecalciferol (vitamin D3) 1,000 unit capsule 1,000 unit PO QDAY 07/06/17 [History Confirmed 07/06/17] methylprednisolone 4 mg tablets in a dose pack See Label Instructions PO PER PKG DIR #21 tab 07/06/17 [Rx Confirmed 07/06/17] PFSH Medical History Anxiety with depression (Acute) Anxiety and depression (Acute) Asthma (Acute) Back pain (Acute) Neck pain (Acute) Ovarian cyst (Acute) SOB (shortness of breath) (Acute) Surgical History History of wisdom tooth extraction, class II edentulism (Acute) Family History Mother Cancer Cervical - Hyst Social History Smoking Status: Never smoker alcohol intake: never substance use type: does not use caffeine: Yes frequency: 1-2 times per week seatbelt use: always do you feel safe at home: Yes 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 She notes having an awful tasting sputum in her mouth w/ cough, cough is worse qhs, and occasional chills. She notes not feeling wheezy, stating albuterol MDI and nebulzer at home do not help her symptoms. She feels these symptoms are comparable to when she was last dx'd w/ bacterial bronchitis 1 yr ago. Nonsmoker, w/ no other members in house w/ similar c/o. No other associated symptoms, no other +/- factors. ROS Const Constitutional: Positive for chills; no excessive sweating, abnormal sleep pattern, fever(s), night sweats or headache(s) Eyes Eyes: No change in vision ENT ENT: No abnormal hearing, ear pain, ear discharge, ear pressure, hearing loss, post nasal drip, sinus pressure or headache(s) Resp Respiratory: Positive for cough and shortness of breath sob: SOB with activity; no chest congestion Cardio Cardiology: No excessive sweating, chest pain at rest, chest pain with exertion, shortness of breath, dyspnea on exertion, irregular heart rhythm, generalized swelling or leg pain with exertion Gastro GI: No abdominal pain, change in stool character or change in bowel habits Musc Musculoskeletal: No joint pain, back pain, limited range of motion, tingling or numbness Skin Skin: No rash Neuro Neurology: No abnormal hearing, abnormal speech, abnormal movements, tingling, numbness, headache(s) or dizziness Psych Psychiatric: No abnormal sleep pattern Endo Endocrine: No excessive sweating Exam Const General: cooperative (Though warm to touch), healthy appearing, no acute distress, comfortable, well groomed Nutritional Appearance: average body habitus, obese Orientation: alert, awake, oriented x3 HENMT Head: normal to inspection Ears: hearing grossly normal bilaterally, external ears normal, TM's normal bilaterally, EAC's normal Nose: external nose normal, nares normal, septum normal, no nasal discharge Face and sinus: normal facial exam, sinuses nontender, face symmetric Mouth: oral mucosae normal, lip normal, tongue normal, oropharynx normal Teeth and gingiva: dentition normal, gingiva normal Throat: uvula midline, tonsils normal, posterior oropharynx normal, no postnasal drainage Eyes General: appearance normal, both eyes and all related structures Neck Neck: normal visual inspection, full ROM, no lymphadenopathy, no meningeal signs, supple Neck mass: No Thyroid: thyroid normal Lymphatic: no lymphadenopathy noted Chest Chest palpation AND inspection: normal inspection of the chest Resp Effort AND Inspection: normal respiratory effort, able to speak in complete sentences, symmetric chest movement, cough (Nonproductive) Quality of cough: wet Auscultation: Bilateral: Clear to Auscultation Cardio Palpation: normal PMI Rate: tachycardic Rhythm: regular rhythm Heart Sounds: S1 normal, S2 normal, no gallops, no murmurs, no rubs Pulses: radial pulses present Skin General: no rashes or lesions noted Neuro General: alert, awake, oriented x3, gait normal Cognition: normal cognition Speech: speech normal Gait: normal gait Motor: muscle tone normal throughout Sensory Exam: no sensory deficits noted Psych Appearance: grossly normal Mental Status: mental status grossly normal Mood: congruent mood Affect: normal affect Speech and Movement: speech and movement normal Attitude: cooperative Thought Process: normal Thought Content: normal Judgment: judgment good Assessment AND Plan Problems 1. Bronchitis J40 Plan Azithromycin and Medrol Dosepak as prescribed today. There fluids, rest, Tylenol as needed for symptomatic relief. Avoid tobacco smoke exposure. Follow-up with PCP in 3-5 days for reevaluation, ED sooner should symptoms worsen or any other concerns develop. Patient states acknowledging understanding all the above. This note was generated with [employer] dictation software. It may contain incorrect words, spelling, and punctuation that were not noted in checking the note before signing. Medications New: azithromycin 2 tablets today, then 1 tablet daily on 250 mg PO QDAY VONNIE Ortez days 2 through 5 Discontinued: citalopram (Celexa) Discontinued Reason: Pt no longer ta20 mg PO QDAY Lilly ceron Coding Level of Care Code Off vis,est,level 3 Diagnoses Bronchitis J40 07/06/17 1126 <Electronically signed by Winston SHNAKAR> Date Winston SHANKAR Cosigner Signature: Date (if applicable) CC: TRANSVAGINAL Observed: 06/24/2017 Status: F Source: DANNY NON- 10:08 AM [facility] REPOSITORY [facility] Imaging Services [facility] [place] [address] Transvaginal Non- MR#: [id number] Acct: [id number] Name: ANDREW BERNARDO Rep #: [id number] : 1990 F 27 From: Edwin Rock PCP: Ahmet Cabello DO Status: PRE CLI Study: Transvaginal Non- Date of Exam: 06/24/17 Exam# [id number] Ordering Dr: Ne Weller MD STUDY: ULTRASOUND TRANSVAGINAL CLINICAL: Female, 27 years old. Elevated testosterone. Patient taking control pills. Chronic pelvic pain. TECHNIQUE: Transvaginal COMPARISON: None. FINDINGS: Uterus measures 6.5 x 3.7 x 3.7 cm and is retroverted. Normal endometrial thickness measuring 3 mm. There are no endometrial masses, and there is no fluid in the endometrial cavity. Normal uterine cervix. Normal right ovary, measuring 1.4 x 1.0 x 0.7 cm. There are multiple follicles without a dominant cyst. Normal left ovary, measuring 2.7 x 2.6 x 2.1 cm. Left ovarian simple cyst measuring 2.7 x 2.5 x 2.2 cm. There is no free fluid in the pelvis. Polycystic ovary disease: No. US/Transvaginal Non- IMPRESSION: 2.7 cm simple left ovarian cyst compatible with physiologic cyst. Otherwise negative exam. 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 Elevated testosterone. Patient taking control pills. Chronic pelvic pain. TECHNIQUE: Transvaginal COMPARISON: None. FINDINGS: Uterus measures 6.5 x 3.7 x 3.7 cm and is retroverted. Normal endometrial thickness measuring 3 mm. There are no endometrial masses, and there is no fluid in the endometrial cavity. Normal uterine cervix. Normal right ovary, measuring 1.4 x 1.0 x 0.7 cm. There are multiple follicles without a dominant cyst. Normal left ovary, measuring 2.7 x 2.6 x 2.1 cm. Left ovarian simple cyst measuring 2.7 x 2.5 x 2.2 cm. There is no free fluid in the pelvis. Polycystic ovary disease: No. US/Pelvic (Non ) IMPRESSION: 2.7 cm simple left ovarian cyst compatible with physiologic cyst. Otherwise negative exam. Electronically Signed: Edwin Rock MD at 8:09 EDT , Service support , CC: Ahmet Cabello DO; Ne Weller MD Weights And Measures Sealer: Signed TESTOSTERONE, TOTAL / Collected: 06/05/2017 Status: F Source: DANNY FREE 9:21 AM [facility] REPOSITORY Order Comment: Has Patient had X-rays with Contrast this admission? N TYPE CODE TESTS RESULT OUT OF RANGE REFERENCE UNITS LAB L3100.5320 8-48 ng/dL Normal TESTOSTER,TOTAL 37 LAB L3100.5340 0.10-0.85 ng/dL Normal TESTOSTER,FREE 0.71 LAB L3100.5360 0.50-2.80 % Normal TESTOSTER %FREE 1.91 Result Comment: Performed at: [address] [id number] Director Trust: Cuauhtemoc Merritt PhD, Phone: [phone] Performed at: [address] [id number] Director Trust: Everton Snowden MD, Phone: [phone] Performed By: #### L3100.5310 #### [facility] (refer to report for specific site) refer to report for address and phone number FOLLICLE STIMULATING Collected: 05/30/2017 Status: F Source: DANNY HORMONE 4:35 PM [facility] REPOSITORY TYPE CODE TESTS RESULT OUT OF RANGE REFERENCE UNITS LAB L3100.5125 mIU/mL Normal FSH 7.7 Result Comment: NORMAL REFERENCE RANGES FEMALE FOLLICULAR 2.3 - 12.6 mIU/mL MID-CYCLE PEAK 5.2 - 17.5 mIU/mL LUTEAL 1.7 - 12.9 mIU/mL POST-MENOPAUSAL ON MHT 5.9 - 72.8 mIU/mL NOT ON MHT 12.7 - 132.2 mlU/mL MALE 0.7 - 10.8 mIU/mL NEW TEST METHOD AND REFERENCE RANGES JULY 25, 2011 Performed By: #### L3100.5125 #### [facility] [address] [place], [place], [id number] #### L3100.9000 #### [facility] (refer to report for specific site) refer to report for address and phone number [phone] Collected: Status: F Source: DANNY 05/30/2017 4:35 PM [facility] REPOSITORY Order Comment: Has Patient had Radioactive Injection for X-ray?: N TYPE CODE TESTS RESULT OUT OF RANGE REFERENCE UNITS LAB L3100.9000 . ng/dL Normal HYDROXPROG 17 < 10 Result Comment: Adult Female Follicular 15 - 70 Luteal 35 - 290 This test was developed and its performance characteristics determined by [facility]. It has not been cleared or approved by the Food and Drug Administration. Performed at: [address] [id number] Director Trust: Everton Snowden MD, Phone: [phone] Performed By: #### L3100.5125 #### [facility] [address] [place], [place], [id number] #### L3100.9000 #### [facility] (refer to report for specific site) refer to report for address and phone number DHEA SULFATE Collected: 05/30/2017 Status: F Source: DANNY 4:35 PM [facility] REPOSITORY Order Comment: Has Patient had Radioactive Injection for X-ray?: N TYPE CODE TESTS RESULT OUT OF RANGE REFERENCE UNITS LAB L3300.1500 84.8-378.0 ug/dL Normal DHEA SULF 96.9 4020 Performed By: #### L3300.1500, L3400.4800 #### [facility] (refer to report for specific site) refer to report for address and phone number TESTOSTERONE FREE Collected: 05/30/2017 Status: F Source: DANNY 4:35 PM [facility] REPOSITORY Order Comment: Has Patient had Radioactive Injection for X-ray?: N TYPE CODE TESTS RESULT OUT OF REFERENCE UNITS RANGE LAB L3400.4800 0.0-4.2 pg/mL High TEST FR 15.0 [id number] Result Comment: Performed at: - [facility] [id number] Director Trust: Cuauhtemoc Merritt PhD, Phone: [phone] Performed at: - [facility] [address] [id number] Director Trust: Everton Snowden MD, Phone: [phone] Performed By: #### L3300.1500, L3400.4800 #### [facility] (refer to report for specific site) refer to report for address and phone number T4 FREE DIRECT Collected: 05/24/2017 Status: F Source: [place] 3:54 PM [facility] REPOSITORY TYPE CODE TESTS RESULT OUT OF RANGE REFERENCE UNITS LAB L506.0400 0.76-1.46 ng/dL Normal T4 FREE 0.93 DIRECT Performed By: #### L506.0400 #### [facility] [place], [address] T3 TOTAL - TRIIODOTHYRONINE Collected: 05/24/2017 Status: F Source: DANNY 3:54 PM [facility] REPOSITORY TYPE CODE TESTS RESULT OUT OF RANGE REFERENCE UNITS LAB L501.9186 0.6-1.81 ng/mL Normal T3 Total 1.06 Performed By: #### L501.9186 #### [facility] [address] [place], [address] HEMOGLOBIN A1C Collected: 05/23/2017 Status: F Source: DANNY 4:22 PM [facility] REPOSITORY TYPE CODE TESTS RESULT OUT OF RANGE REFERENCE UNITS LAB L501.9985 4.2-6.3 % Normal HGB A1C 5.1 Performed By: #### L501.9985 #### [place] [facility] [address] [place], [address] 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 estradiol 20 mcg (24)-iron 75 mg (4) chew tablet 1 tab PO QDAY 04/20/17 [History Confirmed 04/20/17] norethindrone 1 mg-e. estradiol 20 mcg (24)-iron 75 mg (4) chew tablet 1 tab PO QDAY #28 tab 04/20/17 [Rx Confirmed 04/20/17] Is last menstrual period known: Yes Last Menstral Period: 04/05/17 Post menopausal: No Patient : No : No ON LICENSE OF [facility] Medical History Anxiety with depression (Acute) Anxiety and depression (Acute) Ovarian cyst (Acute) Surgical History History of wisdom tooth extraction, class II edentulism (Acute) Family History Mother Cancer Cervical - Hyst Social History Smoking Status: Never smoker alcohol intake: never substance use type: does not use caffeine: Yes frequency: 1-2 times per week seatbelt use: always do you feel safe at home: Yes 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 Last PAP: over 3 years History of abnormal PAP: no Last mammogram: no History of abnormal mammogram: Colon cancer screening: Other preventative health care screenings: Female Reproductive History Last Menstral Period: 04/05/17 Cycle Length: 21-35 Bleeding Duration: 5 Control Method: OCP Questions: Metorrhagia: No, Sexually active: Yes, Dyspareunia: No, PCB: No ROS Const Constitutional: Reports as per HPI; denies poor appetite, fatigue, increased appetite, weight gain or weight loss Cardio Card: Denies chest pain Resp Resp: Denies dyspnea or cough GI GI: Reports as per HPI; denies bloating, abdominal pain, constipation, vomiting or nausea : Reports as per HPI and other; denies blood in urine, vaginal odor, vaginal itching, vaginal dryness, vaginal discharge, urinary urgency, urinary incontinence, urinary frequency, pelvic pain, painful urination, difficulty urinating, prolapse symptoms or nipple discharge Skin Skin/Breast: Denies breast pain, breast skin changes, nipple discharge, breast lump or changing lesions Exam Const General: cooperative, healthy appearing, comfortable, no acute distress, well developed, well groomed [facility] Head: normal to inspection, normocephalic Ears: hearing grossly normal bilaterally, external ears normal Nose: external nose normal Face and sinus: normal facial exam Neck Neck: normal visual inspection, full ROM, no lymphadenopathy Thyroid: thyroid normal Chest Chest palpation AND inspection: normal inspection of the chest Resp Effort AND Inspection: normal respiratory effort GI Inspection: normal to inspection, non-distended Palpation: no guarding, soft, no hepatosplenomegaly General: bladder normal to palpation External Female Exam: normal external appearance, normal appearance of the urethra, no lesions Urethra: normal appearance of the urethra, normal palpation Speculum Exam - Vagina: normal appearance of the vagina, normal vaginal discharge Speculum Exam - Cervix: normal appearance of the cervix, no cervical discharge, no lesions, nontender Bimanual Exam- Vagina AND Uterus: No cervical tenderness, normal bimanual exam, uterine size normal, bladder normal to palpation, uterine mobility normal, uterine consistency normal, uterus non-tender, no cervical motion tenderness Bimanual Exam- Adnexa, other: normal adnexae, no adnexal masses, adnexae non-tender Skin General: no rashes or lesions noted Neuro General: alert, moves all extremities, no focal motor deficits Extrem General: no pedal edema, normal to inspection Psych Appearance: grossly normal Mental Status: mental status grossly normal Affect: normal affect Speech and Movement: speech and movement normal Attitude: cooperative Assessment AND Plan Problems 1. Anxiety with depression F41.8 Celexa 2. Encounter for gynecological examination with abnormal finding Z01.411 3. Screening for cervical cancer Z12.4 4. Screening for HPV (human papillomavirus) Z11.51 Plan Cervical cancer screening: pap Breast cancer screening: clinical STD prevention and contraceptive options including their risks, benefits, and alternatives were reviewed with the patient and she chooses: ocp Encouraged maintenance of a healthy weight and active lifestyle and handout given. Calcium/vitamin D recommendations provided. Annual exam handout including recommendations for good health guidelines and basic screening information given. Problem list up to date, see problem list details for any additional plan information. follow up in one year for annual health maintenance exam or sooner if needed. Medications New: Coding Level of Care Code Off vis,est,prev 18-39yrs Diagnoses Anxiety with depression F41.8 Encounter for gynecological examination with abnormal finding Z01.411 Gynecological examination findings: abnormal findings PRESENT Screening for cervical cancer Z12.4 Screening for HPV (human papillomavirus) Z11.51 04/20/17 1637 <Electronically signed by Ne Weller MD> Date Ne Weller MD Cosigner Signature: Date (if applicable) CC: PAP I-G W/RFX Collected: 04/20/2017 Status: F Source: DANNY HRHPV-APTIMA 3:00 PM [facility] REPOSITORY Order Comment: CYTOLOGY INFORMATION: - CLINICAL INFORMATION: HYSTERECTOMY - DATE LMP/MENOPAUSE: LMP - COLLECTION VIAL: Thin Prep Vial - DICE TABLE PERSON SOURCE: CERVICAL - COLLECTION TECHNIQUE: CX BROOM ONLY/BRUSH Specimen Comment: [id number] Specimen Comment: No. of containers..01 ThinPrep Vial TYPE CODE TESTS RESULT OUT OF RANGE REFERENCE UNITS LAB L7400.0800 . Normal DIAGN Comment Result Comment: NEGATIVE FOR INTRAEPITHELIAL LESION AND MALIGNANCY. LAB L7400.0900 . Normal ADEQ Comment Result Comment: Satisfactory for evaluation. Endocervical and/or squamous metaplastic cells (endocervical component) are present. LAB L7400.1400 . Normal PERFORM Comment Result Comment: Xavier Allen, Engineering Operator (ASCP) LAB L7400.2575 . Normal TEST METHOD Comment Result Comment: This liquid based ThinPrep(R) pap test was screened with the use of an image guided system. LAB L7400.2600 . Normal . COMM LAB L7400.2700 . Normal PAPSMR Comment Result Comment: The Pap smear is a screening test designed to aid in the detection of premalignant and malignant conditions of the uterine cervix. It is not a diagnostic procedure and should not be used as the sole means of detecting cervical cancer. Both false-positive and false-negative reports do occur. LAB L7400.2800 . Normal HPV RFLX Comment Result Comment: The HPV DNA reflex criteria were not met with this specimen result therefore, no HPV testing was performed. Performed at: - [facility] [id number] Director Trust: Isi Aguiar MD, Phone: [phone] Performed By: #### L7400.0353 #### [facility] (refer to report for specific site) refer to report for address and phone number ALLERGIES ALLERGIES DATE TYPE / CODE NAME / CODE REACTION SEVERITY SOURCE 02/19/2018 Drug No Known Unknown Danny [facility] Allergy/416 Allergies/L92868 [facility] 872854(SNOM 0388(RXNORM) Repository ED CT) 11/29/2017 DRUG BUPROPION HCL GI UPSET [facility] INGREDI/[address] 035102(SNOM Repository ED CT) 12/08/2015 DRUG/570059 FLU VACCINE TS GI UPSET [facility] 003(SNOMED 2015-16(4YR,UP) [address] [place] [address]) Repository 12/15/2014 DRUG RED DYE GI UPSET [facility] INGREDI/[address] 495420(SNOM Repository ED CT) 10/29/2013 DRUG/717683 VITAMIN E OIL RASH [facility] 003(SNOMED [address] [place] [address]) Repository ENCOUNTERS ENCOUNTERS ADMIT/DISCHARGE ACCOUNT ADMITTING ENCOUNTER LOCATION SOURCE NUMBER CLASS 02/19/2018/02/20/20 [id number] Ambulatory BMSBuilding:B [place] 18 [place].CF.[facility] Repository 02/19/2018/02/20/20 [id number] Ambulatory [address] ing:ENRoom: Repository AC12 02/01/2018/02/02/20 [id number] Ambulatory BMSBuilding:B Danny 18 MS.[facility] Repository 12/22/2017 [id number] [facility]ulatory [facility] ing:LAB.FUTUR Repository E 12/07/2017 [id number] [facility]ulatory [facility] ing:LABSPEC Repository 12/05/2017/12/07/19 [id number] Ambulatory [address] Repository 12/03/2017/12/04/19 [id number] Emergency [address] Hospital ing:ED Repository 11/29/2017/12/01/19 [id number] Ambulatory [address] Repository 11/29/2017 [id number] Ambulatory [facility] Hospital ing:EMPH Repository 08/11/[id number] [facility] Repository 08/08/2017 [id number] [facility]ulatory [facility] ing:NS Repository 07/12/2017/07/18/19 [id number] Ambulatory [address] Repository 07/12/2017/08/04/19 [id number] Ambulatory [place] [facility] ing:NS Repository 07/10/2017/07/11/19 [id number] Ambulatory BMSBuilding:B [place] 18 [facility] Repository 07/06/2017/07/07/19 [id number] Ambulatory BMSBuilding:B Danny 18 MS.[facility] Repository 06/24/2017 [id number] [facility] Repository 06/05/2017/07/04/19 [id number] Ambulatory Danny Danny [address] [place] [address] [facility] Hospital ing:NS Repository 06/05/2017 [id number] [facility]LAB Repository 05/30/2017 [id number] [facility] 05/24/2017 [id number] [facility] Repository 05/23/2017 [id number] [facility] ing[facility]LAB Repository 05/22/2017/06/04/19 [id number] Ambulatory [place] Danny [facility] ing[facility]NS Repository 04/20/2017 [id number] [facility] Repository 04/20/2017/04/20/19 [id number] Ambulatory BMSBuilding:B Danny 18 [facility] Repository 04/10/2017/05/03/19 [id number] Ambulatory [place] [facility] ing:NS Repository PAYERS PAYERS ENCOUNTER GUARANTOR PAYER SUBSCRIBER SOURCE 02/19/2018 ANDREW Kaufman Primary Insurance:[facility] ANDREW Talbertoster [id number] [facility] FELTNERDOB: [facility] 1828[place] Number: Repository [address]Pep: [phone]) [id number] [phone] () Date:5620-00-45DB [address] [address]LLFYPVQCX, [place] [address]QB: CHECK WEBSITE 02/19/2018 Secondary NOT GIVENUNK [place] Insurance:SELF PAY [facility] Number: Effective Repository Date:2018-02-19 02/19/2018 ANDREW Kaufman Primary Insurance:[facility] ANDREW Delgado [id number] MUTUAL HEALTH FELTNERDOB: [facility] 9911-31-74[place]ZVSugar [place] Number: Repository [address]Jft: 330 [id number] [phone] () Date:7849-30-02LO [address] [address]NCEHYCWYQ, [place] [address]WT: CHECK WEBSITE 02/19/2018 Secondary NOT GIVENUNK [place] Insurance:SELF PAY [facility] Number: Effective Repository Date:2018-02-01 02/01/2018 ANDREW Kaufman Primary Insurance:[facility] ANDREW Delgado [id number] MUTUAL HEALTH FELTNERDOB: [facility] 1473-45-93HKNSugar [place], [place] Number: Repository [address]Ity: 330 [id number] [phone] () Date:1894-13-23YS [address] [address]DMOUHMWPX, [place] [address]CO: CHECK WEBSITE 02/01/2018 Secondary NOT GIVENUNK Danny Insurance:SELF PAY [facility] Number: Effective Repository Date:2018-01-23 12/22/2017 ANDREW Kaufman Primary Insurance:[facility] ANDREW Delgado [id number] M[employer] HEALTH FELTNERDOB: [facility] 4319-39-76TQFSugar [place] Number: Repository [address]Rmy: 330 [id number] [phone] () Date:3779-65-37DA [address] [address]TPBRJDUWP, [place] [address]AY: CHECK WEBSITE 12/22/2017 Secondary NOT GIVENUNK Danny Insurance:SELF PAY [facility] Number: Effective Repository Date:2017-12-21 12/07/2017 ANDREW Kaufman Primary Insurance:[facility] ANDREW Delgado [id number] M[employer] HE[employer] FELTNERDOB: [facility] 8839-19-33GJOSugar [place] Number: Repository [address]Jxl: 330 [id number] [phone] (HP) Date:9344-94-89TO [address] [address]WTJLBTZYM, [place] [address]DS: CHECK WEBSITE 12/07/2017 Secondary NOT GIVENUNK Glen Insurance:SELF PAY [facility] Number: Effective Repository Date:2017-12-07 12/03/2017 ANDREW Kaufman Primary Insurance:[facility] ANDREW Kaufman Danny [id number] MUTUAL HEALTH FELTNERDOB: [facility] 5358-34-24LQWWeisbrod [facility] [place] Number: Repository [address]Zhu: 330 [id number] [phone] (HP) Date:9732-80-13XL [address] [address]WWTAHJFHK, [place] [address]QI: CHECK WEBSITE 12/03/2017 Secondary NOT GIVENUNK [place] Insurance:SELF PAY [facility] Number: Effective Repository Date:2017-12-03 11/29/2017 ANDREW Kaufman Primary NOT GIVENUNK [place] [id number] Insurance:SELF PAY [place] Number: Effective Repository [address]Bpx: 330) Date:2017-11-29 [phone] (HP) 08/08/2017 ANDREW Kaufman Primary Insurance:[facility] ANDREW Kaumfan [place] [id number] MUTUAL HEALTH FELTNERDOB: [facility] 1541-43-03AZMSugar [place], [place] Number: Repository [address]Dvp: 330 [id number] [phone] (HP) Date:8088-75-03DU [address] [address]IEWGIKDEJ, [place] [address]EP: CHECK WEBSITE 08/08/2017 Secondary NOT GIVENUNK Danny Insurance:SELF PAY [facility] Number: Effective Repository Date:2017-08-04 07/12/2017 ANDREW Kaufman Primary Insurance:[facility] ANDREW Kaufman Glen [id number] M[employer] HEALTH FELTNERDOB: [facility] 0295-63-03CRVSugar [place], [place] Number: Repository [address]Qbl: 330 [id number] [phone] (HP) Date:9092-18-07TG [address] [address]FOXWTBZVX, [place] [address]SX: CHECK WEBSITE 07/12/2017 Secondary NOT GIVENUNK [place] Insurance:SELF PAY [facility] Number: Effective Repository Date:2017-07-04 07/10/2017 ANDREW Kaufman Primary Insurance:[facility] ANDREW Delgado [id number] MUTUAL HEALTH FELTNERDOB: Community [facility] 0675-55-20ORQSugar [place], [place] Number: Repository [address]Ckt: 330 [id number] [phone] () Date:2198-25-95QR [address] [address]MIXSKGGDC, [place] [address]XA: CHECK WEBSITE 07/10/2017 Secondary NOT GIVENUNK Glen Insurance:SELF PAY [facility] Number: Effective Repository Date:2017-07-10 07/06/2017 ANDREW Kaufman Primary Insurance:[facility] ANDREW Delgado [id number] M[employer]UAL HEALTH FELTNERDOB: [facility] 1773-42-46FMOSugar [place] Number: Repository [address]Mqf: 330 [id number] [phone] () Date:0168-96-94GT [address] [address]JKRXMFUSV, [place] [address]LR: CHECK WEBSITE 07/06/2017 Secondary NOT GIVENUNK Glen Insurance:SELF PAY [facility] Number: Effective Repository Date:2017-07-06 06/24/2017 ANDREW Kaufman Primary Insurance:[facility] ANDREW Delgado [id number] [employer] HE[employer] FELTNERDOB: [facility] 5230-96-36CTWSugar [place], [place] Number: Repository [address]Qxu: 330 [id number] [phone] () Date:2823-20-59HF [facility] [address]CKOKYDNCL, [place] [address]PF: CHECK WEBSITE 06/24/2017 Secondary NOT GIVENUNK [place] Insurance:SELF PAY [facility] Number: Effective Repository Date:2017-06-15 06/05/2017 ANDREW Primary Insurance:[facility] ANDREW Delgado [id number] M[employer] HEALTH FELTNERDOB: [facility] 0958-22-23WDZSugar [place], [place] Number: Repository [address]Hon: 330 [id number] [phone] () Date:1279-53-62WK [address] [address]QRHCXONRZ, [place] [address]DC: CHECK WEBSITE 06/05/2017 Secondary NOT GIVENUNK Glen Insurance:SELF PAY [facility] Number: Effective Repository Date:2017-06-04 06/05/2017 ANDREW Primary Insurance:[facility] ANDREW Delgado [id number] M[employer] HEALTH FELTNERDOB: [facility] 4141-28-25CJTSugar [place], [place] Number: Repository [address]Uoq: 330 [id number] [phone] () Date:4134-43-38FV [address] [address]ISUOZYVFH, [place] [address]JU: CHECK WEBSITE 06/05/2017 Secondary NOT GIVENUNK Danny Insurance:SELF PAY [facility] Number: Effective Repository Date:2017-06-05 05/30/2017 ANDREW Primary Insurance:[facility] ANDREW Delgado [id number] MUTUAL HEALTH FELTNERDOB: [facility] 6204-56-18HALSugar [place], [place] Number: Repository [address]Xrz: 330 [id number] [phone] () Date:3696-04-64JG [address] [address]ELJQWETPL, [place] [address]PA: CHECK WEBSITE 05/30/2017 Secondary NOT GIVENUNK Glen Insurance:SELF PAY [facility] Number: Effective Repository Date:2017-05-30 05/24/2017 ANDREW Primary Insurance:[facility] ANDREW Delgado [id number] MUTUAL HEALTH FELTNERDOB: [facility] 7757-33-16VLDSugar [place], [place] Number: Repository [address]Pwa: 330 [id number] [phone] () Date:9179-35-97IO [address] [address]ILUCYTUXT, [place] [address]XO: CHECK WEBSITE 05/24/2017 Secondary NOT GIVENUNK Danny Insurance:SELF PAY [facility] Number: Effective Repository Date:2017-05-24 05/23/2017 ANDREW Primary Insurance:[facility] ANDREW Delgado [id number] MUTUAL HEALTH FELTNERDOB: [facility] 2177-21-45SJSSugar [place], [place] Number: Repository [address]Pbv: 330 [id number] [phone] () Date:8529-19-62MJ [address] [address]CWEPCRVYY, [place] [address]DO: CHECK WEBSITE 05/23/2017 Secondary NOT GIVENUNK Glen Insurance:SELF PAY [facility] Number: Effective Repository Date:2017-05-23 05/22/2017 ANDREW Kuafman Primary Insurance:[facility] ANDREW Talbertoster [id number] MUTUAL HEALTH FELTNERDOB: Community [facility] 2090-47-89FAISugar [place], [place] Number: Repository [address]Eyw: 330 [id number] [phone] () Date:8111-75-94NI [address] [address]OLZAPACAR, [place] [address]XD: CHECK WEBSITE 05/22/2017 Secondary NOT GIVENUNK Danny Insurance:SELF PAY [facility] Number: Effective Repository Date:2017-05-04 04/20/2017 ANDREW Primary Insurance:[facility] ANDREW Talbertoster [id number] MUTUAL HEALTH FELTNERDOB: [facility] 7389-13-24SHKSugar [place], [place] Number: Repository [address]Kix: 330 [id number] [phone] () Date:4445-66-43DP [address] [address]XLDIZHPIP, [place] [address]JQ: CHECK WEBSITE 04/20/2017 Secondary NOT GIVENUNK Danny Insurance:SELF PAY [facility] Number: Effective Repository Date:2017-04-20 04/20/2017 ANDREW Primary Insurance:[facility] ANDREW Delgado [id number] MUTUAL HEALTH FELTNERDOB: [facility] 1375-51-21XLVSugar [place], [place] Number: Repository [address]Xuh: 330 [id number] [phone] () Date:8676-47-07VM [address] [address]WYKLZGUYK, [place] [address]IC: CHECK WEBSITE 04/20/2017 Secondary NOT GIVENUNK Danny Insurance:SELF PAY [facility] Number: Effective Repository Date:2017 04/10/2017 Andrew Primary Insurance:[facility] Andrew Delgado [id number] [facility] FeltnerDOB: [facility] 5234-42-29LYAHopkins, [place] Number: Repository [address]Neu: ([phone]) [id number] [phone] () Date:6059-63-61UU [address] [address]JGGQOEHVH, [place] [address]XP: CHECK WEBSITE 04/10/2017 Secondary NOT GIVENMIRIAN Delgado Insurance:SELF PAY [facility] Number: Effective Repository Date:2017-04-06
== END 2018-02-19 10:08 | disposition home or self-care (01) ==
LOC: EN 07:30 → AC 07:32
PROVIDERS: Anesthesiology; Family Provider Student in an Organized Health Care Education/Training Program; PCP Student in an Organized Health Care Education/Training Program; Referring Provider Surgery; Visit Provider Surgery
PROC: 0DJD8ZZ Inspection of Lower Intestinal Tract, Via Natural or Artificial Opening Endoscopic (ICD-10-PCS; CPT 45378; principal; 2018-02-19 08:25)
DX: K29.70 Gastritis, unspecified, without bleeding (principal); K52.9 Noninfective gastroenteritis and colitis, unspecified; F41.9 Anxiety disorder, unspecified; F32.9 Major depressive disorder, single episode, unspecified; E66.9 Obesity, unspecified; Z68.41 Body mass index [BMI] 40.0-44.9, adult
CPT/HCPCS: 43239; 45380; 81025; 88305; 88342; J7120

== ENCOUNTER 2018-04-26 13:59 | Emergency (ER) | payer OTHER, SELFPAY ==
[2018-04-26 13:59] VITALS: BP 117/75; PULSE 89; RESP 16; TEMP 36.1; O2SAT 98; BMI 40.8
[2018-04-26] MEDS: Ondansetron ODT 4 MG Tablet PO (14:25)
--- NOTE | 2018-04-26 14:30 | ED.VISSUMM ---
- ER Visit Summary Date of Service: 04/26/18 Chief Complaint: [] Abdominal cramps and diarrhea after completing blood donation History of Present Illness: The patient is a 28 F [] patient was donating blood she had no issues prior to arrival to the donation center no issues during the donation when she was done she was about to leave she began to have abdominal cramps and diarrhea, she came to the emergency department, she has a history of a nonspecific GI ailment that causes the above symptoms she has been extensively evaluated by GI with multiple diagnostic procedures including scopes CAT scans etc. no specific diagnosis has been established she takes meclizine for the symptoms, she was not sick before she donated the blood just complains of a generalized sense of nausea intermittent abdominal cramps and while in the ED she had copious diarrhea no blood no fever no cough antibiotics denies being Physical Examination: [] v Signs within normal range General, no distress resting comfortably HEENT is generally unremarkable The neck is supple no adenopathy Cardiovascular, regular rate and rhythm Lungs, clear bilateral Abdomen, soft, nonspecific generalized discomfort no rebound or organomegaly her chief complaint really is nausea Extremities, no clubbing cyanosis or edema Neurologic, awake alert answering questions appropriately moving all 4 extremities Test Results: [] Emergency Department Course and Treatment: [] Spent at this time given that she was feeling fine all day today and this all was precipitated just after blood donation we could avoid ED lab evaluation IV etc. and try to treat her with oral medications and oral rehydration she agreed to that The patient is feeling better she is taking oral products here in the ED she wants to go home she will follow with her doctors return for change in symptoms Treatment Plan: [] Disposition: [] Stable Impression: [], abd cramps and diarrhea after donating blood This note was generated with [employer] dictation software. It may contain incorrect words, spelling, and punctuation that were not noted in review of the chart prior to signing ED Disposition - Plan for ED Patient: Referrals: Ahmet Martinez DO [Primary Care Provider] -
[2018-04-26 15:18] VITALS: BP 125/77; PULSE 87; RESP 19; O2SAT 100
--- NOTE | 2018-04-26 16:29 | ED.DEP ---
ED Disposition - Plan for ED Patient: Instructions: ED Epigastric Pain [facility] Referrals: Ahmet Martinez DO [Primary Care Provider] -
[2018-04-26 16:58] VITALS: BP 102/86; PULSE 87; RESP 15; O2SAT 99
== END 2018-04-26 16:59 | disposition home or self-care (01) ==
LOC: ED 15:49
PROVIDERS: Emergency Provider Emergency Medicine; Family Provider Student in an Organized Health Care Education/Training Program; PCP Student in an Organized Health Care Education/Training Program
DX: R10.9 Unspecified abdominal pain (principal); R19.7 Diarrhea, unspecified; Z79.899 Other long term (current) drug therapy
CPT/HCPCS: 99283

== ENCOUNTER → 2019-09-05 | Outpatient (CLI) | payer OTHER, SELFPAY ==
[2019-09-05 15:21] VITALS: BMI 40.8
[2019-09-05 20:36] LABS: Chlamydia Trachomatis by PCR Negative (Negative); Neisserai gonorrhoeae by PCR Negative (Negative); Probe Check PASS; Sample Adequacy Control PASS; Specimen Processing Control PASS
[2019-09-12 05:48] LABS: HPV APTIMA, High Risk Negative (Negative)
== END | disposition home or self-care (01) ==
LOC: LABSPEC 17:14
PROVIDERS: PCP Student in an Organized Health Care Education/Training Program; Referring Provider Obstetrics & Gynecology; Visit Provider Obstetrics & Gynecology
DX: Z12.4 Encounter for screening for malignant neoplasm of cervix (principal); Z11.3 Encounter for screening for infections with a predominantly sexual mode of transmission
CPT/HCPCS: 87491; 87591; 87624; 88175; G0145

== ENCOUNTER 2019-09-20 08:26 | Emergency (ER) | payer OTHER, SELFPAY ==
[2019-09-05 15:21] VITALS: BMI 40.8
[2019-09-20 08:27] VITALS: BP 153/90; PULSE 107; RESP 16; TEMP 36.2; O2SAT 98; BMI 44.8
--- NOTE | 2019-09-20 08:28 | NURSING ---
NO OLD EKGS
--- NOTE | 2019-09-20 08:40 | EKG12_ITS ---
Test Reason : CP Blood Pressure : / mmHG Vent. Rate : 109 BPM Atrial Rate : 109 BPM P-R Int : 130 ms QRS Dur : 076 ms QT Int : 350 ms P-R-T Axes : 034 030 016 degrees QTc Int : 471 ms Sinus tachycardia Nonspecific ST abnormality Abnormal ECG Confirmed by JOE BENNETT, MARITZA ([id number]), map editor BLOSSOM PRADO ([id number]) on 09/24/2019 9:18:21 AM Referred By: SALVADOR Confirmed By:MARITZA DIAZ MD
--- NOTE | 2019-09-20 08:45 | RAD_ITS ---
STUDY: X-RAY CHEST REASON FOR EXAM: Female, 29 years old. MIDSTERNAL CHEST PAIN, DYSPNEA -- HX OF ASTHMA TECHNIQUE: Single AP portable view of the chest. COMPARISON: None. FINDINGS: EKG electrodes are seen. The lungs are clear and expanded. There is no demonstrated pleural abnormality. Normal size heart. Normal mediastinum and madeline. Normal visualized pulmonary arteries. Normal visualized aortic arch and descending thoracic aorta. Normal visualized thoracic spine. Normal visualized ribs, clavicles, and shoulders. There is no demonstrated abnormality of the visualized soft tissue structures of the upper abdomen. RAD/Chest 1 View (Portable) IMPRESSION: Normal x-ray examination of the chest. Electronically Signed: Doyle Cruz, at 9:25 EDT , Service support ,
[2019-09-20 08:49] LABS: Absolute Lymphocyte Count 1.03 X10^3/uL (0.83-4.51); Absolute Neutrophil Count 2.7 X10^3/uL (2.0-7.7); Basophil# 0.03 X10^3/uL; Basophil% 0.7 % (0-1); Eosinophil# 0.12 X10^3/uL; Eosinophils% 2.8 % (0-5); Hematocrit 39.8 % (37-47); Hemoglobin 13.3 g/dL (12.0-15.0); Lymphocyte # 1.03 X10^3/ul (4.0); Lymphocyte % 23.9 % (19-41); Mean Corp Hgb Conc 33.4 g/dL (32-36); Mean Corpuscular Hgb 30.4 pg (27.0-32.0); Mean Corpuscular Volume 90.9 fL (81-99); Mean Platelet Vol. 10.4 fl (6.2-12.0); Monocyte# 0.46 X10^3/uL; Monocyte% 10.7 % (0-10); NRBC Flagged by Analyzer 0 % (0-5); Neutrophil # 2.66 X10^3/uL (2.7-7.7); Neutrophil % 61.7 % (47-70); Platelet Count 248 K/mm3 (150-450); RBC Distribution Width CV 13.1 % (11.6-14.6); RBC Distribution Width SD 43.8 fl (35.1-43.9); Red Blood Count 4.38 M/mm3 (4.2-5.4); White Blood Count 4.3 K/mm3 (4.4-11.0)
[2019-09-20] MEDS: 0.9% Normal Saline 1,000 ML 1000 ML IV (08:50)
--- NOTE | 2019-09-20 08:53 | ED.VISSUMM ---
- ER Visit Summary Date of Service: 09/20/19 Chief Complaint: Chest pain History of Present Illness: The patient is a [address] Martinez. She reports that she has chest pain that began at 7:00 last night while she was washing dishes. Is been a constant squeezing pain since that time. Radiates to her left shoulder. Is 10 of 10 at worst and 7 out of 10 currently. Is worsened by bending over or breathing. There is no change with exertion. She taken ibuprofen with minimal relief. She has had nausea, but no vomiting. She does complain of diaphoresis and shortness of breath. She is never had anything like this before. No personal family history of DVT. No recent travel. She is no ankle swelling or calf pain. However, she is on control pills. Physical Examination: Vitals: Stable. Afebrile. General: Well-nourished and well-developed. Head: Normocephalic atraumatic. Neck: Supple, no lymphadenopathy. No JVD. Nontender. Cardiovascular: Tachycardic regular rhythm. No murmurs. Respiratory: No respiratory distress. Clear to auscultation bilaterally. Mild tenderness to palpation over her chest. Abdominal: Soft, nontender, nondistended, normal bowel sounds. No guarding, rebound, or peritoneal signs. Back: Nontender. Extremities: Nontender, no edema. Skin: Normal color, no rash. Neurologic: Alert and oriented ?3. Cranial nerves II through XII are intact. Normal strength and sensation. Psych: Normal affect. Test Results: EKG is sinus tach at [address] changes. No old EKG for comparison. CBC is marked for a white count of 4.3. Chem-7 shows a chloride of 108 and calcium of 8.3. TSH is normal. Troponin is negative. D-dimer is negative. test is negative. COVID-19 was ordered and is pending. Clinical Impression(s) from Imaging Studies Chest X-Ray 09/20/19 08:45 IMPRESSION: Normal x-ray examination of the chest. Electronically Signed: Doyle Cruz, at 9:25 EDT , Service support , Chest CTA 09/20/19 09:30 IMPRESSION: Pulmonary emboli seen in both lower lobes as well as in the right Electronically Signed: Doyle Cruz, at 10:31 EDT , Service support , Emergency Department Course and Treatment: Patient had an IV placed. She is given liter of normal saline. She refused pain medications. Patient's pulmonary embolism severity index is 31 making her class I. She would like to go home. She is given a dose of Eliquis here. Treatment Plan: Patient will be discharged on Eliquis. She refused pain medications. Instructed to follow-up with her primary care physician in 3 to 5 days for another exam. Return to the emergency department for any worsening symptoms. Disposition: To home in improved and stable condition. Impression: 1. Bilateral pulmonary emboli. 2. Use of oral contraceptive pills. This note was generated with [employer] dictation software. It may contain incorrect words, spelling, and punctuation that were not noted in review of the chart prior to signing ED Disposition - Plan for ED Patient: Instructions: Pulmonary Embolism Prescriptions: Apixaban [Eliquis] 5 mg PO BID #74 tablet Referrals: Ahmet Martinez DO [Primary Care Provider] - 3-5 Days
[2019-09-20 08:57] LABS: D-Dimer Quantitative (DVT/PE) 0.43 FEU/ug/m (0.27-0.49)
[2019-09-20 09:11] LABS: Anion Gap 7 (5-15); BUN 10 mg/dL (7-18); BUN/Creat Ratio 12.6 RATIO (10-20); Calcium,Total 8.3 mg/dL (8.5-10.1); Chloride 108 mmol/L (98-107); EST Glomerular Filtration Rate 89 mL/min (>60); Est Glom Filt Rate - Afr Amer 108 mL/min (>60); Estimated Creatinine Clearance 80.59 ml/min; Glucose 92 mg/dL (74-106); Potassium 3.8 mmol/L (3.5-5.1); Sodium Level 140 mmol/L (136-145); Thyroid Stim Hormone (TSH) 3.62 uIU/mL (0.358-3.74)
--- NOTE | 2019-09-20 09:30 | CT_ITS ---
STUDY: CTA CHEST REASON FOR EXAM: Female, 29 years old. PT STATED MID STERNAL CHEST PAIN TODAY RADIATION DOSAGE (If Supplied By Facility): CTDIvol = ( 15.0 ) mGy, DLP = ( 532.23 ) mGycm TECHNIQUE: The examination was performed with the intravenous administration of 100ML ISOVUE 370. Post-processing of the angiographic images was performed, with multiplanar reformation and 3D reconstruction. Individualized dose optimization techniques were used for this CT. COMPARISON: None. FINDINGS: Multiple intraluminal filling defects seen in branches of the right and left lower lobe pulmonary arteries. Smaller intraluminal filling defects are also seen in branches of the right upper lobe pulmonary arteries. Normal thoracic aorta and visualized great vessels. There is no demonstrated aortic dissection. Normal heart and pericardium. Normal mediastinum. Normal hilar regions. Normal visualized trachea and bronchi. The lungs are well expanded. Normal pulmonary parenchyma. Normal pleura. Normal chest wall structures. Normal osseous structures. Normal visualized upper abdomen. CT/CTA Chest W/WO Contrast IMPRESSION: Pulmonary emboli seen in both lower lobes as well as in the right Electronically Signed: Doyle Cruz, at 10:31 EDT , Service support ,
[2019-09-20 09:42] LABS: Internal QC Validated? YES +Cl - CLEAR BKGD; Pregnancy, Serum, hCG Quali. NEGATIVE Negative
[2019-09-20 10:30] VITALS: BP 144/97; PULSE 75; RESP 16; O2SAT 99
[2019-09-20] MEDS: APIXABAN 5 MG TABLET 10 MG PO (11:10)
[2019-09-20 11:12] VITALS: BP 109/71; PULSE 77; O2SAT 100
== END 2019-09-20 11:13 | disposition home or self-care (01) ==
LOC: ED 09:04
PROVIDERS: Emergency Provider Emergency Medicine; PCP Student in an Organized Health Care Education/Training Program
DX: I26.99 Other pulmonary embolism without acute cor pulmonale (principal); Z79.3 Long term (current) use of hormonal contraceptives
CPT/HCPCS: 71045; 71275; 80048; 84443; 84484; 84703; 85025; 85379; 87635; 93005; 96360; 99285; G2023; J7030; Q9967; A4216; U0003

== ENCOUNTER → 2019-11-14 | Outpatient (CLI) | payer OTHER, SELFPAY ==
[2019-10-31 05:52] VITALS: BMI 46.3
[2019-11-14 08:24] LABS: Absolute Lymphocyte Count 1.47 X10^3/uL (0.83-4.51); Absolute Neutrophil Count 2.3 X10^3/uL (2.0-7.7); Basophil# 0.03 X10^3/uL; Basophil% 0.7 % (0-1); Eosinophil# 0.16 X10^3/uL; Eosinophils% 3.7 % (0-5); Hematocrit 37.2 % (37-47); Hemoglobin 12.4 g/dL (12.0-15.0); Lymphocyte # 1.47 X10^3/ul (4.0); Lymphocyte % 33.6 % (19-41); Mean Corp Hgb Conc 33.3 g/dL (32-36); Mean Corpuscular Hgb 29.3 pg (27.0-32.0); Mean Corpuscular Volume 87.9 fL (81-99); Mean Platelet Vol. 9.7 fl (6.2-12.0); Monocyte# 0.42 X10^3/uL; Monocyte% 9.6 % (0-10); NRBC Flagged by Analyzer 0 % (0-5); Neutrophil # 2.29 X10^3/uL (2.7-7.7); Neutrophil % 52.2 % (47-70); Platelet Count 229 K/mm3 (150-450); RBC Distribution Width CV 13.6 % (11.6-14.6); RBC Distribution Width SD 43.7 fl (35.1-43.9); Red Blood Count 4.23 M/mm3 (4.2-5.4); White Blood Count 4.4 K/mm3 (4.4-11.0)
[2019-11-14 08:47] LABS: Vitamin D,25 Hydroxy 46.3 ng/mL
[2019-11-14 08:58] LABS: ALB/GLOB Ratio 0.9 RATIO (0.9-2.4); AST(SGOT) 25 U/L (15-37); Alanine Aminotransfer ALT/SGPT 32 U/L (13-56); Albumin, Serum 3.4 g/dL (3.2-5.0); Alkaline Phosphatase 56 U/L (45-117); Anion Gap 4 (5-15); BUN 11 mg/dL (7-18); Calcium,Total 8.4 mg/dL (8.5-10.1); Chloride 107 mmol/L (98-107); Cholesterol 206 mg/dL (200); Creatinine, Serum 0.74 mg/dL (0.55-1.02); EST Glomerular Filtration Rate 98 mL/min (>60); Est Glom Filt Rate - Afr Amer 118 mL/min (>60); Ferritin 25 ng/mL (8-252); Globulin 3.9 g/dL (2.2-4.2); Glucose 87 mg/dL (74-106); High Density Lipoprotein 52 mg/dL; Iron 56 ug/dL (50-170); Iron Binding Capacity,Total 278 ug/dL (250-450); Potassium 4.1 mmol/L (3.5-5.1); Protein, Total 7.3 g/dL (6.4-8.2); Sodium Level 139 mmol/L (136-145); T4 Free Direct 0.91 ng/dL (0.76-1.46); Thyroid Stim Hormone (TSH) 3.14 uIU/mL (0.358-3.74); Triglycerides 80 mg/dL; Very Low Density Lipoprotein 16 mg/dL (5-40)
== END | disposition home or self-care (01) ==
PROVIDERS: PCP Student in an Organized Health Care Education/Training Program; Referring Provider Student in an Organized Health Care Education/Training Program; Visit Provider Student in an Organized Health Care Education/Training Program
DX: Z00.00 Encounter for general adult medical examination without abnormal findings (principal); N92.1 Excessive and frequent menstruation with irregular cycle; R53.83 Other fatigue
CPT/HCPCS: 36415; 80053; 80061; 82306; 82728; 83540; 83550; 84439; 84443; 85025

== ENCOUNTER → 2020-04-24 21:33 | Outpatient (CLI) | payer OTHER, SELFPAY ==
[2020-04-03 13:44] VITALS: BMI 49.1
== END ==
PROVIDERS: PCP Student in an Organized Health Care Education/Training Program; Referring Provider Nurse Practitioner Acute Care; Visit Provider Nurse Practitioner Acute Care
DX: G47.33 Obstructive sleep apnea (adult) (pediatric) (principal)
CPT/HCPCS: 95811

== ENCOUNTER → 2020-05-08 08:00 | Outpatient (CLI) | payer OTHER, SELFPAY ==
[2020-04-03 13:44] VITALS: BMI 49.1
== END ==
PROVIDERS: PCP Student in an Organized Health Care Education/Training Program; Visit Provider Nurse Practitioner Acute Care
DX: Z46.89 Encounter for fitting and adjustment of other specified devices (principal)

== ENCOUNTER → 2021-02-12 | Outpatient (CLI) | payer OTHER, SELFPAY | END | disposition home or self-care (01) | LOC: LABSPEC 02-15 06:37 | PROVIDERS: PCP Student in an Organized Health Care Education/Training Program; Referring Provider Obstetrics & Gynecology; Visit Provider Obstetrics & Gynecology | DX: Z86.19 Personal history of other infectious and parasitic diseases (principal) | CPT/HCPCS: 87070; 87077; 87186; 87205 ==